=== PATIENT | female | born 1940 | race American Indian/Alaskan Native ===

== ENCOUNTER 2018-12-06 15:33 | Observation (INO) | payer MEDICARE ==
--- NOTE | 2018-12-06 17:49 | XRay Report ---
CHEST 1 VIEW INDICATION: WEAKNESS. COMPARISON: None. FINDINGS: Support devices: None. Heart: Normal. Lungs/Pleura: There are diffuse increased reticular markings throughout both lungs. These are of unce rtain chronicity. No consolidation, significant effusion, or pneumothorax. IMPRESSION: 1. Age-indeterminate diffuse increased reticular markings within both lungs. No consolidation or effu parish. Signer Name: Dagoberto Horn MD Signed: 12/06/2018 5:45 PM Workstation Name: [id number]
--- NOTE | 2018-12-06 17:51 | Emergency Department Report ---
ED General Adult HPI - General Chief complaint: Weakness Stated complaint: (R) ARM NUMB Time Seen by Provider: 12/06/18 16:55 Source: patient, EMS Mode of arrival: Stretcher Limitations: No Limitations - History of Present Illness Initial comments: Patient presents to the emergency department with her daughter for chief complaint of right-sided weakness and numbness. Patient states that she wasn't febrile on her right side became weak and numb. Patient has a history of a CVA in the past. Symptoms have resolved. Denies facial droop or slurred speech. -: Sudden Severity scale (0 -10): 0 Consistency: now resolved Improves with: none Worsens with: none Associated Symptoms: denies other symptoms Treatments Prior to Arrival: none - Related Data Home Medications Medication Instructions Recorded Confirmed Last Taken Lisinopril [Zestril] 20 mg PO QDAY 12/06/18 12/06/18 12/06/18 Memantine [Namenda] 10 mg PO QDAY 12/06/18 12/06/18 12/06/18 Allergies Allergy/AdvReac Type Severity Reaction Status Date / Time iodine Allergy Shortness Verified 12/06/18 18:47 of Breath ED Review of Systems ROS: Stated complaint: (R) ARM NUMB Other details as noted in HPI Comment: All other systems reviewed and negative Constitutional: denies: chills, fever Eyes: denies: eye pain, eye discharge, vision change ENT: denies: ear pain, throat pain Respiratory: denies: cough, shortness of breath, wheezing Cardiovascular: denies: chest pain, palpitations Endocrine: no symptoms reported Gastrointestinal: denies: abdominal pain, nausea, diarrhea Genitourinary: denies: urgency, dysuria, discharge Musculoskeletal: denies: back pain, joint swelling, arthralgia Skin: denies: rash, lesions Neurological: denies: headache, weakness, paresthesias Psychiatric: denies: anxiety, depression Hematological/Lymphatic: denies: easy bleeding, easy bruising ED Past Medical Hx - Past Medical History Previous Medical History?: Yes Hx Hypertension: Yes Hx Congestive Heart Failure: Yes Additional medical history: dementia - Surgical History Past Surgical History?: No - Social History Smoking Status: Former Smoker Substance Use Type: None - Medications Home Medications: Home Medications Medication Instructions Recorded Confirmed Last Taken Type Lisinopril [Zestril] 20 mg PO QDAY 12/06/18 12/06/18 12/06/18 History Memantine [Namenda] 10 mg PO QDAY 12/06/18 12/06/18 12/06/18 History ED Physical Exam - General Limitations: No Limitations General appearance: alert, in no apparent distress - Head Head exam: Present: atraumatic, normocephalic - Eye Eye exam: Present: normal appearance, PERRL, EOMI - ENT ENT exam: Present: mucous membranes moist - Neck Neck exam: Present: normal inspection - Respiratory Respiratory exam: Present: normal lung sounds bilaterally. Absent: respiratory distress - Cardiovascular Cardiovascular Exam: Present: regular rate, normal rhythm. Absent: systolic murmur, diastolic murmur, rubs, gallop - GI/Abdominal GI/Abdominal exam: Present: soft, normal bowel sounds - Extremities Exam Extremities exam: Present: normal inspection - Back Exam Back exam: Present: normal inspection - Neurological Exam Neurological exam: Present: alert, oriented X3, CN II-XII intact. Absent: motor sensory deficit - Psychiatric Psychiatric exam: Present: normal affect, normal mood - Skin Skin exam: Present: warm, dry, intact, normal color. Absent: rash ED Course Vital Signs 12/06/18 12/06/18 16:30 19:05 Temperature 98.7 F 98 F Pulse Rate 70 70 Respiratory 16 12 Rate Blood Pressure 137/55 Blood Pressure 136/100 [Left] O2 Sat by Pulse 100 100 Oximetry ED Medical Decision Making - Lab Data Result diagrams: 12/06/18 17:41 12/06/18 17:41 Lab Results 12/06/18 12/06/18 12/06/18 Range/Units 17:41 17:41 17:41 WBC 6.3 (4.5-11.0) K/mm3 RBC 3.98 (3.65-5.03) M/mm3 Hgb 10.6 (10.1-14.3) gm/dl Hct 32.0 (30.3-42.9) % MCV 81 (79-97) fl MCH 27 L (28-32) pg MCHC 33 (30-34) % RDW 14.7 (13.2-15.2) % Plt Count 244 (140-440) K/mm3 Lymph % (Auto) 33.7 (13.4-35.0) % Addison % (Auto) 11.9 H (0.0-7.3) % Eos % (Auto) 2.4 (0.0-4.3) % Baso % (Auto) 1.2 (0.0-1.8) % Lymph # 2.1 (1.2-5.4) K/mm3 Addison # 0.7 (0.0-0.8) K/mm3 Eos # 0.2 (0.0-0.4) K/mm3 Baso # 0.1 (0.0-0.1) K/mm3 Seg Neutrophils % 50.8 (40.0-70.0) % Seg Neutrophils # 3.2 (1.8-7.7) K/mm3 PT 12.3 (12.2-14.9) Sec. INR 0.94 (0.87-1.13) APTT 24.7 (24.2-36.6) Sec. Sodium 136 L (137-145) mmol/L Potassium 3.8 (3.6-5.0) mmol/L Chloride 99.1 (98-107) mmol/L Carbon Dioxide 26 (22-30) mmol/L Anion Gap 15 mmol/L BUN 21 H (7-17) mg/dL Creatinine 1.4 H (0.7-1.2) mg/dL Estimated GFR 44 ml/min BUN/Creatinine Ratio 15 % Glucose 307 H (65-100) mg/dL Calcium 9.4 (8.4-10.2) mg/dL Total Bilirubin 0.20 (0.1-1.2) mg/dL AST 9 (5-40) units/L ALT 7 (7-56) units/L Alkaline Phosphatase 101 (35-129) units/L Troponin T (0.00-0.029) ng/mL Total Protein 8.2 (6.3-8.2) g/dL Albumin 3.8 L (3.9-5) g/dL Albumin/Globulin Ratio 0.9 % Urine Color (Yellow) Urine Turbidity (Clear) Urine pH (5.0-7.0) Ur Specific Cranberry (1.003-1.030) Urine Protein (Negative) mg/dL Urine Glucose (UA) (Negative) mg/dL Urine Ketones (Negative) mg/dL Urine Blood (Negative) Urine Nitrite (Negative) Urine Bilirubin (Negative) Urine Urobilinogen (<2.0) mg/dL Ur Leukocyte Esterase (Negative) Urine WBC (Auto) (0.0-6.0) /HPF Urine RBC (Auto) (0.0-6.0) /HPF U Epithel Cells (Auto) (0-13.0) /HPF Urine Mucus /HPF 12/06/18 12/06/18 12/06/18 Range/Units 17:41 18:01 19:02 WBC (4.5-11.0) K/mm3 RBC (3.65-5.03) M/mm3 Hgb (10.1-14.3) gm/dl Hct (30.3-42.9) % MCV (79-97) fl MCH (28-32) pg MCHC (30-34) % RDW (13.2-15.2) % Plt Count (140-440) K/mm3 Lymph % (Auto) (13.4-35.0) % Addison % (Auto) (0.0-7.3) % Eos % (Auto) (0.0-4.3) % Baso % (Auto) (0.0-1.8) % Lymph # (1.2-5.4) K/mm3 Addison # (0.0-0.8) K/mm3 Eos # (0.0-0.4) K/mm3 Baso # (0.0-0.1) K/mm3 Seg Neutrophils % (40.0-70.0) % Seg Neutrophils # (1.8-7.7) K/mm3 PT (12.2-14.9) Sec. INR (0.87-1.13) APTT (24.2-36.6) Sec. Sodium (137-145) mmol/L Potassium (3.6-5.0) mmol/L Chloride (98-107) mmol/L Carbon Dioxide (22-30) mmol/L Anion Gap mmol/L BUN (7-17) mg/dL Creatinine (0.7-1.2) mg/dL Estimated GFR ml/min BUN/Creatinine Ratio % Glucose (65-100) mg/dL Calcium (8.4-10.2) mg/dL Total Bilirubin (0.1-1.2) mg/dL AST (5-40) units/L ALT (7-56) units/L Alkaline Phosphatase (35-129) units/L Troponin T < 0.010 < 0.010 (0.00-0.029) ng/mL Total Protein (6.3-8.2) g/dL Albumin (3.9-5) g/dL Albumin/Globulin Ratio % Urine Color Yellow (Yellow) Urine Turbidity Clear (Clear) Urine pH 6.0 (5.0-7.0) Ur Specific Cranberry 1.009 (1.003-1.030) Urine Protein <15 mg/dl (Negative) mg/dL Urine Glucose (UA) 150 (Negative) mg/dL Urine Ketones Neg (Negative) mg/dL Urine Blood Neg (Negative) Urine Nitrite Neg (Negative) Urine Bilirubin Neg (Negative) Urine Urobilinogen < 2.0 (<2.0) mg/dL Ur Leukocyte Esterase Tr (Negative) Urine WBC (Auto) 3.0 (0.0-6.0) /HPF Urine RBC (Auto) < 1.0 (0.0-6.0) /HPF U Epithel Cells (Auto) 1.0 (0-13.0) /HPF Urine Mucus Few /HPF - Radiology Data Radiology results: report reviewed - Medical Decision Making Discussed results with pt Critical care attestation.: If time is entered above; I have spent that time in minutes in the direct care of this critically ill patient, excluding procedure time. ED Disposition Clinical Impression: Weakness, Numbness Disposition: DC-[id number] OP ADMIT IP TO THIS HOSP Is pt being admited?: Yes Does the pt Need Aspirin: No Condition: Fair - Assessment Assessment Interval: Baseline - Level of Consciousness 1a. Level of Consciousness: alert/keenly responsive - LOC Questions 1b. LOC Questions: answers both correctly - LOC Command 1c. LOC Commands: performs tasks correctly - Best Gaze 2. Best Gaze: normal - Visual 3. Visual: no visual loss - Facial Palsy 4. Facial Palsy: normal symmetrical movement - Motor Arm 5a. Motor Arm Left: no drift 5b. Motor Arm Right: no drift - Motor Leg 6a. Motor Leg Left: no drift 6b. Motor Leg Right: no drift - Limb Ataxia 7. Limb Ataxia: absent - Sensory 8. Sensory: normal - Best Language 9. Best Language: no aphasia - Dysarthria 10. Dysarthria: normal - Extinction and Inattention 11. Extinction/Inattention: no abnormality - Scoring Total Score: 0 Stroke Severity: No Stroke Symptoms
[2018-12-06 17:54] LABS: Basophils # (Auto) 0.1 K/mm3 (0.0-0.1); Basophils % (Auto) 1.2 % (0.0-1.8); Eosinophils # (Auto) 0.2 K/mm3 (0.0-0.4); Eosinophils % (Auto) 2.4 % (0.0-4.3); Hemoglobin 10.6 gm/dl (10.1-14.3); Lymphocytes # (Auto) 2.1 K/mm3 (1.2-5.4); Lymphocytes % (Auto) 33.7 % (13.4-35.0); Mean Corpuscular HGB Conc 33 % (30-34); Mean Corpuscular Volume 81 fl (79-97); Monocytes # (Auto) 0.7 K/mm3 (0.0-0.8); Monocytes % (Auto) 11.9 % (0.0-7.3); Platelet Count 244 K/mm3 (140-440); Red Blood Count 3.98 M/mm3 (3.65-5.03); Red Cell Distribution Width 14.7 % (13.2-15.2)
[2018-12-06 18:09] LABS: INR 0.94 (0.87-1.13)
[2018-12-06 18:12] LABS: Partial Thromboplastin Time 24.7 Sec. (24.2-36.6)
[2018-12-06 18:21] LABS: Albumin 3.8 g/dL (3.9-5); Calcium 9.4 mg/dL (8.4-10.2)
[2018-12-06 18:26] LABS: Bilirubin,Urine NEG (Negative); Blood,Urine NEG (Negative); Color,Urine Yellow (Yellow); Mucus,Urine FEW /HPF; Protein,Urine <15 mg/dL mg/dL (Negative); RBC,Urine < 1.0 /HPF (0.0-6.0); Urobilinogen,Urine < 2.0 mg/dL (<2.0)
--- NOTE | 2018-12-06 20:23 | Cat Scan Report ---
Nonenhanced CT scan of the brain: INDICATION: WEAKNESS,NUMBNESS. TECHNIQUE: Routine CT head without contrast. Sagittal and coronal reformatted images were obtained. A ll CT scans at this location are performed using CT dose reduction for ALARA by means of automated ex posure control. COMPARISON: None. FINDINGS: BRAIN / INTRACRANIAL CONTENTS: No acute hemorrhage, mass effect, midline shift, hydrocephalus, or acu te, large territorial infarct. Mild volume loss is seen in the cerebellar vermis and cerebellar hemis pheres. Focal chronic lacunae are seen in the basal ganglia. CRANIOCERVICAL JUNCTION: No significant abnormality. ORBITS: No significant abnormality of visualized orbits. SINUSES / MASTOIDS: No significant abnormality of the visualized paranasal sinuses or mastoid air génesis ls. ADDITIONAL FINDINGS: dural based calcification or ossification is seen in the sphenoid bones bilatera lly. These are nonspecific. IMPRESSION: I do not see an acute parenchymal lesion in the brain. Signer Name: Teddy Villalpando MD Signed: 12/06/2018 8:19 PM Workstation Name: [id number]
[2018-12-06] MEDS ORDERED: SODIUM CHLORIDE FLUSH SYRINGE 10 ML IV PRN (20:45)
[2018-12-06] MEDS ORDERED: ZOFRAN IV PRN (20:45)
[2018-12-06] MEDS ORDERED: TYLENOL PO PRN (20:45)
[2018-12-06] MEDS ORDERED: DULCOLAX PR PRN (20:45)
--- NOTE | 2018-12-06 22:25 | Event Note ---
78-year-old woman with history of dementia and previous CVA who presented with transient right-sided weakness and numbness. Symptoms resolved before presentation to the ER. TIA; -obtain MR brain, MRA brain, carotid dopplers, echo -allow permissive htn -aspirin and high dose statin, check Lipid panel -neurology consult
--- NOTE | 2018-12-06 22:48 | History and Physical Report ---
History of Present Illness Date of examination: 12/06/18 Date of admission: 12/06/2018 Chief complaint: right sided weakness/ numbness History of present illness: 78 are all -Dominican female with history of CVA with left-sided residual weakness (2015), HTN, CHF, and dementia who presents to [facility] ED via EMS with complaints right sided weakness and numbness. Pt is from [place] and is temporarily living with her daughter in [facility]. Pt's daughter is present at bedside and has assisted with history. According to pt's daughter they were driving in the car, when her mother complained of numbness and weakness to right side. She pulled into a [employer] parking lot and called EMS. Upon arrival to our facility states that her symptoms have resolved. Denies: headache, n/v/, diaphoresis, visual disturbancea, or gait dysfunction Past History Past Medical History: heart failure, hypertension, renal failure (?? CKD), stroke (2016), other (dementia) Past Surgical History: No surgical history Social history: lives with family (daughter) Family history: no significant family history Medications and Allergies Allergies Allergy/AdvReac Type Severity Reaction Status Date / Time iodine Allergy Shortness Verified 12/06/18 18:47 of Breath Home Medications Medication Instructions Recorded Confirmed Last Taken Type Carvedilol [Coreg] 25 mg PO BID 12/06/18 12/06/18 12/05/18 History Clopidogrel 75 mg PO DAILY 12/06/18 12/06/18 12/05/18 History Ferrous Sulfate [Ferrous Sulfate 324 mg PO DAILY 12/06/18 12/06/18 12/05/18 History 324 MG] Furosemide [Lasix TAB] 80 mg PO BID 12/06/18 12/06/18 12/05/18 History Gabapentin [Neurontin] 400 mg PO Q8HR 12/06/18 12/06/18 12/05/18 History Linagliptin [Tradjenta] 5 mg PO QDAY 12/06/18 12/06/18 12/05/18 History Lisinopril [Zestril] 20 mg PO QDAY 12/06/18 12/06/18 12/06/18 History Memantine [Namenda] 10 mg PO QDAY 12/06/18 12/06/18 12/06/18 History Nitroglycerin [Nitrostat] 0.4 mg SL PRN 12/06/18 12/06/18 12/05/18 History Omeprazole 40 mg PO QAM 12/06/18 12/06/18 12/05/18 History Oxycodone HCl/Acetaminophen 1 each PO TID 12/06/18 12/06/18 12/05/18 History [Percocet 10/325 mg] Potassium Chloride [K-Dur] 20 meq PO QDAY 12/06/18 12/06/18 12/05/18 History Simvastatin 40 mg PO QHS 12/06/18 12/06/18 12/05/18 History Active Meds: Active Medications Acetaminophen (Tylenol) 650 mg PO Q4H PRN PRN Reason: Pain, Mild (1-3) Aspirin (Aspirin) 325 mg PO QDAY RENEE Atorvastatin Calcium (Lipitor) 40 mg PO QHS RENEE Bisacodyl (Dulcolax) 10 mg [place] QDAY PRN PRN Reason: Constipation Docusate Sodium (Colace) 100 mg PO BID RENEE Enoxaparin Sodium (Lovenox) 40 mg SUB-Q QDAY RENEE Memantine (Namenda) 10 mg PO QDAY RENEE Ondansetron HCl (Zofran) 4 mg IV Q6H PRN PRN Reason: Nausea And Vomiting Sodium Chloride (Sodium Chloride Flush Syringe 10 Ml) 10 ml IV PRN PRN PRN Reason: LINE FLUSH Review of Systems All systems: negative (reviewed and no additional remarkable complaints except as noted below) Neurological: weakness (right sided- new onset, residua left sided weakness), numbness (right sided- new onset, residua left sided weakness) Exam - Physical Exam Narrative exam: Physical exam General appearance: Present: No acute distress, alert and oriented 3, well- developed, well-nourished, -Dominican old adult female - EENT Eyes: Present: PERRL, EOM intact ENT: hearing intact, SVT- Neck Neck: Present: supple, normal ROM - Respiratory Respiratory effort: Non-labored Respiratory: CTA bilaterally - Cardiovascular Heart rate: 70 (bpm) Rhythm: SR Heart Sounds: Present: S1 & S2. Absent: rub, click - Extremities Extremities: no ischemia, pulses intact, abnormal (bilateral lower humidity t race edema) - Peripheral Assessment Peripheral Pulses: within normal limits - Abdominal General gastrointestinal: soft, non-tender, normal bowel sounds - Integumentary Integumentary: Present: warm, dry - Musculoskeletal Musculoskeletal: Able to move all extremities -Neurological Neurological: CN II-XII grossly intact - Psychiatric Psychiatric: Pleasant, cooperative - Constitutional Vitals: Temp Pulse Resp BP Pulse Ox 98 F 83 19 166/74 100 12/06/18 19:05 12/06/18 21:31 12/06/18 21:31 12/06/18 21:31 12/06/18 21:31 Results - Labs CBC & Chem 7: 12/06/18 17:41 12/06/18 17:41 Labs: Laboratory Last Values WBC 6.3 K/mm3 (4.5-11.0) 12/06/18 17:41 RBC 3.98 M/mm3 (3.65-5.03) 12/06/18 17:41 Hgb 10.6 gm/dl (10.1-14.3) 12/06/18 17:41 Hct 32.0 % (30.3-42.9) 12/06/18 17:41 MCV 81 fl (79-97) 12/06/18 17:41 MCH 27 pg (28-32) L 12/06/18 17:41 MCHC 33 % (30-34) 12/06/18 17:41 RDW 14.7 % (13.2-15.2) 12/06/18 17:41 Plt Count 244 K/mm3 (140-440) 12/06/18 17:41 Lymph % (Auto) 33.7 % (13.4-35.0) 12/06/18 17:41 Pine % (Auto) 11.9 % (0.0-7.3) H 12/06/18 17:41 Eos % (Auto) 2.4 % (0.0-4.3) 12/06/18 17:41 Baso % (Auto) 1.2 % (0.0-1.8) 12/06/18 17:41 Lymph # 2.1 K/mm3 (1.2-5.4) 12/06/18 17:41 Pine # 0.7 K/mm3 (0.0-0.8) 12/06/18 17:41 Eos # 0.2 K/mm3 (0.0-0.4) 12/06/18 17:41 Baso # 0.1 K/mm3 (0.0-0.1) 12/06/18 17:41 Seg Neutrophils % 50.8 % (40.0-70.0) 12/06/18 17:41 Seg Neutrophils # 3.2 K/mm3 (1.8-7.7) 12/06/18 17:41 PT 12.3 Sec. (12.2-14.9) 12/06/18 17:41 INR 0.94 (0.87-1.13) 12/06/18 17:41 APTT 24.7 Sec. (24.2-36.6) 12/06/18 17:41 Sodium 136 mmol/L (137-145) L 12/06/18 17:41 Potassium 3.8 mmol/L (3.6-5.0) 12/06/18 17:41 Chloride 99.1 mmol/L (98-107) 12/06/18 17:41 Carbon Dioxide 26 mmol/L (22-30) 12/06/18 17:41 15 mmol/L 12/06/18 17:41 BUN 21 mg/dL (7-17) H 12/06/18 17:41 1.4 mg/dL (0.7-1.2) H 12/06/18 17:41 Estimated GFR 44 ml/min 12/06/18 17:41 15 % 12/06/18 17:41 Glucose 307 mg/dL (65-100) H 12/06/18 17:41 Calcium 9.4 mg/dL (8.4-10.2) 12/06/18 17:41 0.20 mg/dL (0.1-1.2) 12/06/18 17:41 AST 9 units/L (5-40) 12/06/18 17:41 ALT 7 units/L (7-56) 12/06/18 17:41 101 units/L (35-129) 12/06/18 17:41 < 0.010 ng/mL (0.00-0.029) 12/06/18 19:02 8.2 g/dL (6.3-8.2) 12/06/18 17:41 3.8 g/dL (3.9-5) L 12/06/18 17:41 0.9 % 12/06/18 17:41 Yellow (Yellow) 12/06/18 18:01 Clear (Clear) 12/06/18 18:01 6.0 (5.0-7.0) 12/06/18 18:01 Ur Specific Rayne 1.009 (1.003-1.030) 12/06/18 18:01 <15 mg/dl mg/dL (Negative) 12/06/18 18:01 150 mg/dL (Negative) 12/06/18 18:01 Neg mg/dL (Negative) 12/06/18 18:01 Neg (Negative) 12/06/18 18:01 Neg (Negative) 12/06/18 18:01 Neg (Negative) 12/06/18 18:01 < 2.0 mg/dL (<2.0) 12/06/18 18:01 Ur Leukocyte Esterase Tr (Negative) 12/06/18 18:01 3.0 /HPF (0.0-6.0) 12/06/18 18:01 < 1.0 /HPF (0.0-6.0) 12/06/18 18:01 U Epithel Cells (Auto) 1.0 /HPF (0-13.0) 12/06/18 18:01 Few /HPF 12/06/18 18:01 - Imaging and Cardiology Chest x-ray: report reviewed (There are diffuse increased reticular markings throughout both lungs. These are of uncertain chronicity. No consolidation, significant effusion, or pneumothorax. ), image reviewed Imaging and Cardiology: CT Head: Findings: BRAIN / INTRACRANIAL CONTENTS: No acute hemorrhage, mass effect, midline shift, hydrocephalus, or acute, large territorial infarct. Mild volume loss is seen in the cerebellar vermis and cerebellar hemispheres. Focal chronic lacunae are seen in the basal ganglia. CRANIOCERVICAL JUNCTION: No significant abnormality. ORBITS: No significant abnormality of visualized orbits. SINUSES / MASTOIDS: No significant abnormality of the visualized paranasal sinuses or mastoid air cells. ADDITIONAL FINDINGS: dural based calcification or ossification is seen in the sphenoid bones bilaterally. These are nonspecific. Impression: I do not see an acute parenchymal lesion in the brain. Assessment and Plan Assessment and plan: 78 are all -Dominican female with history of CVA with left-sided residual weakness (2016), HTN, CHF, and dementia who presents to [facility] ED via EMS with complaints right sided weakness and numbness. 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
[2018-12-06] MEDS ORDERED: D50W (25GM) Syringe IV PRN (22:56)
[2018-12-06] MEDS ORDERED: NACL 0.9% 1000 ML 1,000 ML IV SCH (23:00)
[2018-12-07] MEDS ORDERED: NITROSTAT SL PRN (01:00)
[2018-12-07] MEDS: COLACE PO SCH ×2 (03:18→15:07)
[2018-12-07] MEDS ORDERED: APRESOLINE IV PRN (04:04)
[2018-12-07 04:24] LABS: Chol/HDL Ratio 3.59 %
[2018-12-07] MEDS: NEURONTIN PO SCH ×3 (04:42→15:07)
[2018-12-07] MEDS: HumuLIN R SUB-Q SCH ×3 (08:00→20:14)
--- NOTE | 2018-12-07 08:26 | Progress Note ---
Assessment and Plan Assessment and plan: Patient is a 78 yo woman with a history of dementia, CVA with left sided residual weakness, hypertension and CHF who presented with transient right-sided weakness and numbness. 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 -Initiate stroke protocol -Neuro checks protocol -MRI Brain, MRA negative -Bilaterl Carotid doppler negative -Neurology consulted, input noted -PT/OT Eval pending Type 2 DM -BG on admission 304 -no hx of Dm-->daughter Hiren at bedside says she takes Diabetes pill -HgbA1c==>11.8 -POC BG monitoring -SSI coverage HTN -Monitor BP -Allow permissive HTN for the 24hrs, then will resume home antihypertensive meds -IV hydralazine when necessary Chronic diastolic heart failure -pt daughter reports hx of CHF -Echo pending==>ddx EF 50%, -Will resume HF meds once med rec has been completed ESTUARDO superimposed CDK3 -vasomotor nephrology -Cr on admission 1.4 with GFR 44 -Gentle hydration with IVF -Nephrology consulted Dementia on Namenda Dysphagia to liquid (i witnessed) PPI bid outpatient referral to GI History Interval history: Patient was seen and examined. Follow-up on current diagnosis. No overnight events reported to me. Patient denies any chest pain, shortness breath, nausea/vomiting or severe headaches. Imaging, nursing note, chart, labs and old chart reviewed. Discussed with patient. Hospitalist Physical - Physical exam Narrative exam: Gen: WDWN, NAD, Awake, Alert, confused HEENT: NCAT, EOMI, PERRL, OP Clear Neck: supple, no adenopathy, no thyromegaly, no JVD CVS/Heart: RRR, normal S1S2, pulses present bilaterally Chest/Lungs: CTA B, Symmetrical chest expansion, good air entry bilaterally GI/Abdomen: soft, NTND, good bowel sounds, no guarding or rebound /Bladder: no suprapubic tenderness, no CVA or paraspinal tenderness Extermity/Skin: no c/c/e, no obvious rash MSK: FROM x 3 Neuro: CN 2-12 grossly intact, no new focal deficits, old left hemiparesis Psych: calm but confused - Constitutional Vitals: Temp Pulse Resp BP Pulse Ox 98.2 F 88 18 141/76 94 12/07/18 07:04 12/07/18 07:04 12/07/18 07:04 12/07/18 07:04 12/07/18 07:04 Results - Labs CBC & Chem 7: 12/06/18 17:41 12/06/18 17:41 Labs: Laboratory Last Values WBC 6.3 K/mm3 (4.5-11.0) 12/06/18 17:41 RBC 3.98 M/mm3 (3.65-5.03) 12/06/18 17:41 Hgb 10.6 gm/dl (10.1-14.3) 12/06/18 17:41 Hct 32.0 % (30.3-42.9) 12/06/18 17:41 MCV 81 fl (79-97) 12/06/18 17:41 MCH 27 pg (28-32) L 12/06/18 17:41 MCHC 33 % (30-34) 12/06/18 17:41 RDW 14.7 % (13.2-15.2) 12/06/18 17:41 Plt Count 244 K/mm3 (140-440) 12/06/18 17:41 Lymph % (Auto) 33.7 % (13.4-35.0) 12/06/18 17:41 [place] % (Auto) 11.9 % (0.0-7.3) H 12/06/18 17:41 Eos % (Auto) 2.4 % (0.0-4.3) 12/06/18 17:41 Baso % (Auto) 1.2 % (0.0-1.8) 12/06/18 17:41 Lymph # 2.1 K/mm3 (1.2-5.4) 12/06/18 17:41 [place] # 0.7 K/mm3 (0.0-0.8) 12/06/18 17:41 Eos # 0.2 K/mm3 (0.0-0.4) 12/06/18 17:41 Baso # 0.1 K/mm3 (0.0-0.1) 12/06/18 17:41 Seg Neutrophils % 50.8 % (40.0-70.0) 12/06/18 17:41 Seg Neutrophils # 3.2 K/mm3 (1.8-7.7) 12/06/18 17:41 PT 12.3 Sec. (12.2-14.9) 12/06/18 17:41 INR 0.94 (0.87-1.13) 12/06/18 17:41 APTT 24.7 Sec. (24.2-36.6) 12/06/18 17:41 Sodium 136 mmol/L (137-145) L 12/06/18 17:41 Potassium 3.8 mmol/L (3.6-5.0) 12/06/18 17:41 Chloride 99.1 mmol/L (98-107) 12/06/18 17:41 Carbon Dioxide 26 mmol/L (22-30) 12/06/18 17:41 15 mmol/L 12/06/18 17:41 BUN 21 mg/dL (7-17) H 12/06/18 17:41 1.4 mg/dL (0.7-1.2) H 12/06/18 17:41 Estimated GFR 44 ml/min 12/06/18 17:41 15 % 12/06/18 17:41 Glucose 307 mg/dL (65-100) H 12/06/18 17:41 11.8 % (4-6) H 12/06/18 17:41 Calcium 9.4 mg/dL (8.4-10.2) 12/06/18 17:41 0.20 mg/dL (0.1-1.2) 12/06/18 17:41 AST 9 units/L (5-40) 12/06/18 17:41 ALT 7 units/L (7-56) 12/06/18 17:41 101 units/L (35-129) 12/06/18 17:41 < 0.010 ng/mL (0.00-0.029) 12/06/18 19:02 8.2 g/dL (6.3-8.2) 12/06/18 17:41 3.8 g/dL (3.9-5) L 12/06/18 17:41 0.9 % 12/06/18 17:41 Triglycerides 197 mg/dL (2-149) H 12/07/18 03:54 Cholesterol 133 mg/dL (50-199) 12/07/18 03:54 76 mg/dL (50-130) 12/07/18 03:54 37 mg/dL (40-59) L 12/07/18 03:54 3.59 % 12/07/18 03:54 Yellow (Yellow) 12/06/18 18:01 Clear (Clear) 12/06/18 18:01 6.0 (5.0-7.0) 12/06/18 18:01 Ur Specific [place] 1.009 (1.003-1.030) 12/06/18 18:01 <15 mg/dl mg/dL (Negative) 12/06/18 18:01 150 mg/dL (Negative) 12/06/18 18:01 Neg mg/dL (Negative) 12/06/18 18:01 Neg (Negative) 12/06/18 18:01 Neg (Negative) 12/06/18 18:01 Neg (Negative) 12/06/18 18:01 < 2.0 mg/dL (<2.0) 12/06/18 18:01 Ur Leukocyte Esterase Tr (Negative) 12/06/18 18:01 3.0 /HPF (0.0-6.0) 12/06/18 18:01 < 1.0 /HPF (0.0-6.0) 12/06/18 18:01 U Epithel Cells (Auto) 1.0 /HPF (0-13.0) 12/06/18 18:01 Few /HPF 12/06/18 18:01 Active Medications - Current Medications Current Medications: Generic Name Dose Route Start Last Admin Trade Name Freq PRN Reason Stop Dose Admin Acetaminophen 650 mg 12/06/18 20:45 12/07/18 05:03 Tylenol PO 650 mg Q4H PRN Administration Pain, Mild (1-3) Aspirin 325 mg 12/07/18 10:00 Aspirin PO QDAY [facility] Atorvastatin Calcium 40 mg 12/06/18 22:00 12/07/18 03:18 Lipitor PO Not Given QHS [facility] Bisacodyl 10 mg 12/06/18 20:45 Dulcolax IN QDAY PRN Constipation Clopidogrel Bisulfate 75 mg 12/07/18 10:00 Plavix PO DAILY [facility] Dextrose 50 ml 12/06/18 22:56 D50w (25gm) Syringe IV PRN PRN Hypoglycemia Docusate Sodium 100 mg 12/06/18 22:00 12/07/18 03:18 Colace PO Not Given BID [facility] Ferrous Sulfate 325 mg 12/07/18 10:00 Feosol PO DAILY [facility] Gabapentin 400 mg 12/07/18 06:00 12/07/18 07:35 Neurontin PO Not Given Q8HR [facility] Heparin Sodium (Porcine) 5,000 unit 12/07/18 10:00 Heparin SUB-Q Q12HR [facility] Hydralazine HCl 10 mg 12/07/18 04:04 12/07/18 04:41 Apresoline IV 10 mg Q4H PRN Administration Blood Pressure Sodium Chloride 1,000 mls @ 42 mls/hr 12/06/18 23:00 Nacl 0.9% 1000 Ml IV 12/07/18 12:00 DIRECT [facility] Insulin Human Regular 0 units 12/07/18 07:30 Humulin R SUB-Q ACHS [facility] Protocol Linagliptin 5 mg 12/07/18 10:00 Tradjenta PO QDAY [facility] Memantine 10 mg 12/07/18 10:00 Namenda PO QDAY [facility] Nitroglycerin 0.4 mg 12/07/18 01:00 Nitrostat SL Q5MIN PRN Chest Pain Ondansetron HCl 4 mg 12/06/18 20:45 Zofran IV Q6H PRN Nausea And Vomiting Pantoprazole Sodium 40 mg 12/07/18 10:00 Protonix PO QAM [facility] Sodium Chloride 10 ml 12/06/18 20:45 Sodium Chloride Flush Syringe 10 Ml IV PRN PRN LINE FLUSH
[2018-12-07] MEDS ORDERED: ZESTRIL PO SCH (10:00)
[2018-12-07] MEDS ORDERED: PLAVIX PO SCH (10:00)
[2018-12-07] MEDS ORDERED: HEPARIN SUB-Q SCH (10:00)
[2018-12-07] MEDS ORDERED: TRADJENTA PO SCH (10:00)
[2018-12-07] MEDS ORDERED: PROTONIX PO SCH (10:00)
[2018-12-07] MEDS ORDERED: LOVENOX SUB-Q SCH (10:00)
[2018-12-07] MEDS ORDERED: ASPIRIN PO SCH (10:00)
[2018-12-07] MEDS ORDERED: FEOSOL PO SCH (10:00)
[2018-12-07] MEDS ORDERED: NAMENDA PO SCH (10:00)
--- NOTE | 2018-12-07 10:16 | Vascular Lab Report ---
DUPLEX DOPPLER ULTRASOUND CAROTID, BILATERAL INDICATION: stroke FINDINGS: Right Carotid: No significant atherosclerotic plaque. Right CCA velocity: 88 cm/sec. Right ICA peak systolic velocity: 120 cm/sec. Systolic velocity ratio: 1.38. Spectral broadening: Mild Right Vertebral Artery: Antegrade flow. Left Carotid: No significant atherosclerotic plaque. Left CCA velocity: 83 cm/sec. Left ICA peak systolic velocity: 97 cm/sec. Systolic velocity ratio: 1.16 Spectral broadening: Mild Left Vertebral Artery: Antegrade flow IMPRESSION: 1. Sonographic NASCET Index Right Internal Carotid Artery and Left internal carotid artery:16-49% stenosis pansystolic spectral broadening with a PSV <125 cm/s 2. Less than 50% stenosis external carotids arteries bilaterally 3. Less than 50% stenosis common carotid arteries bilaterally 4. Antegrade flow both vertebral arteries Sonographic NASCET Index This study proposed the incorporation of distal ICA flow velocity information on the conventional car otid Doppler study improving the diagnostic accuracy of PSV 1. <15% stenosis deceleration spectral broadening with a peak systolic velocity (PSV) <125 cm/s 16-49% stenosis pansystolic spectral broadening with a PSV <125 cm/s 50-69% stenosis pansystolic spectral broadening with a PSV of >125 cm/s and end diastolic velocity (EDV) <110 cm/s or ICA/CCA PSV ratio >2 but <4 70-79% stenosis pansystolic spectral broadening with PSV >270 cm/s or EDV >110 cm/s or ICA/CCA PSV ratio >4 80-99% stenosis: EDV >140 cm/s complete occlusion: no flow; terminal thump Signer Name: Rehan Paige MD Signed: 12/07/2018 10:12 AM Workstation Name: [id number]
--- NOTE | 2018-12-07 12:25 | Magnetic Resonance Report ---
MRI BRAIN 12/07/2018 INDICATION / CLINICAL INFORMATION: TIA. Dizziness. Right-sided weakness.. TECHNIQUE: Multiplanar, multisequence MR images of the brain were obtained. COMPARISON: CT brain 12/06/2018 FINDINGS: BRAIN / INTRACRANIAL CONTENTS: Unenhanced MR images of the brain demonstrate no evidence of acute int racranial abnormality. Ventricles and sulci are normal in size and shape for a patient of this age. Mild chronic white matter T2 weighted hyperintensities are present in the periventricular white matte r of the cerebral hemispheres, consistent with chronic small vessel ischemic change. There is no evidence of acute ischemic injury, hemorrhage, or mass. There are no abnormal extra-axial fluid collections. EXTRACRANIAL: Unremarkable CRANIOCERVICAL JUNCTION: No significant abnormality. VASCULAR FLOW-VOIDS: No significant abnormality. IMPRESSION: Signer Name: Emil Jimenez MD Signed: 12/07/2018 12:21 PM Workstation Name: [id number]
--- NOTE | 2018-12-07 12:27 | Magnetic Resonance Report ---
MRA HEAD 12/07/2018 INDICATION / CLINICAL INFORMATION: Dizziness. Right-sided weakness.. TECHNIQUE: Routine MRA of the head is performed. 3-D/MIP reformats postprocessed. Some patient motion artifact i s present. COMPARISON: None available. FINDINGS: MRA HEAD: Intracranial internal carotid arteries: No significant abnormality. Anterior cerebral arteries: No significant abnormality. Middle cerebral arteries: No significant abnormality. Intracranial vertebral arteries: No significant abnormality. Basilar artery: No significant abnormality. Posterior cerebral arteries: No significant abnormality. . IMPRESSION: No significant abnormality. Signer Name: Emil Jimenez MD Signed: 12/07/2018 12:22 PM Workstation Name: [id number]
--- NOTE | 2018-12-07 14:35 | Consultation ---
Past History Past Medical History: heart failure, hypertension, renal failure (?? CKD), stroke (2016), other (dementia) Past Surgical History: No surgical history Social history: lives with family (daughter) Family history: no significant family history Medications and Allergies Allergies Allergy/AdvReac Type Severity Reaction Status Date / Time iodine Allergy Shortness Verified 12/06/18 18:47 of Breath Home Medications Medication Instructions Recorded Confirmed Last Taken Type Carvedilol [Coreg] 25 mg PO BID 12/06/18 12/06/18 12/05/18 History Clopidogrel 75 mg PO DAILY 12/06/18 12/06/18 12/05/18 History Ferrous Sulfate [Ferrous Sulfate 324 mg PO DAILY 12/06/18 12/06/18 12/05/18 History 324 MG] Furosemide [Lasix TAB] 80 mg PO BID 12/06/18 12/06/18 12/05/18 History Gabapentin [Neurontin] 400 mg PO Q8HR 12/06/18 12/06/18 12/05/18 History Linagliptin [Tradjenta] 5 mg PO QDAY 12/06/18 12/06/18 12/05/18 History Lisinopril [Zestril] 20 mg PO QDAY 12/06/18 12/06/18 12/06/18 History Memantine [Namenda] 10 mg PO QDAY 12/06/18 12/06/18 12/05/18 History Nitroglycerin [Nitrostat] 0.4 mg SL PRN 12/06/18 12/06/18 12/05/18 History Omeprazole 40 mg PO QAM 12/06/18 12/06/18 12/05/18 History Oxycodone HCl/Acetaminophen 1 each PO TID 12/06/18 12/06/18 12/05/18 History [Percocet 10/325 mg] Potassium Chloride [K-Dur] 20 meq PO QDAY 12/06/18 12/06/18 12/05/18 History Simvastatin 40 mg PO QHS 12/06/18 12/06/18 12/05/18 History Active Meds: Active Medications Acetaminophen (Tylenol) 650 mg PO Q4H PRN PRN Reason: Pain, Mild (1-3) Last Admin: 12/07/18 05:03 Dose: 650 mg Documented by: Aspirin (Aspirin) 325 mg PO QDAY [facility] Atorvastatin Calcium (Lipitor) 40 mg PO QHS [facility] Last Admin: 12/07/18 03:18 Dose: Not Given Documented by: Bisacodyl (Dulcolax) 10 mg CA QDAY PRN PRN Reason: Constipation Clopidogrel Bisulfate (Plavix) 75 mg PO DAILY [facility] Dextrose (D50w (25gm) Syringe) 50 ml IV PRN PRN PRN Reason: Hypoglycemia Docusate Sodium (Colace) 100 mg PO BID [facility] Last Admin: 12/07/18 03:18 Dose: Not Given Documented by: Ferrous Sulfate (Feosol) 325 mg PO DAILY [facility] Gabapentin (Neurontin) 400 mg PO Q8HR [facility] Last Admin: 12/07/18 07:35 Dose: Not Given Documented by: Heparin Sodium (Porcine) (Heparin) 5,000 unit SUB-Q Q12HR [facility] Hydralazine HCl (Apresoline) 10 mg IV Q4H PRN PRN Reason: Blood Pressure Last Admin: 12/07/18 04:41 Dose: 10 mg Documented by: Insulin Human Regular (Humulin R) 0 units SUB-Q ACHS [facility]; Protocol Linagliptin (Tradjenta) 5 mg PO QDAY [facility] Memantine (Namenda) 10 mg PO QDAY [facility] Nitroglycerin (Nitrostat) 0.4 mg SL Q5MIN PRN PRN Reason: Chest Pain Ondansetron HCl (Zofran) 4 mg IV Q6H PRN PRN Reason: Nausea And Vomiting Pantoprazole Sodium (Protonix) 40 mg PO QAM [facility] Sodium Chloride (Sodium Chloride Flush Syringe 10 Ml) 10 ml IV PRN PRN PRN Reason: LINE FLUSH Physical Examination - Vital Signs Vital Signs: Vital Signs Temp Pulse Resp BP Pulse Ox 98.7 F 70 16 137/55 100 12/06/18 16:30 12/06/18 16:30 12/06/18 16:30 12/06/18 16:30 12/06/18 16:30 Results - Laboratory Findings CBC and BMP: 12/06/18 17:41 12/06/18 17:41 Abnormal Lab Findings: Abnormal Labs 12/06/18 12/06/18 12/06/18 17:41 17:41 17:41 MCH 27 L [place] % (Auto) 11.9 H Sodium 136 L BUN 21 H Creatinine 1.4 H Glucose 307 H POC Glucose Hemoglobin A1c 11.8 H Albumin 3.8 L Triglycerides HDL Cholesterol 12/07/18 12/07/18 03:54 11:41 MCH [place] % (Auto) Sodium BUN Creatinine Glucose POC Glucose 267 H Hemoglobin A1c Albumin Triglycerides 197 H HDL Cholesterol 37 L Assessment and Plan Neurology consult report MS. HINSON IS A 78 YR OLD FEMALE WITH HIST OF HTN,DIABETES,DEMENTIA AND OLD STROKE WITH RESIDUAL LEFT HEMIPARESIS WHO WAS BROUGHT TO THE HOSPITAL ON 12/06/2018 BECAUSE OF AN EPISODE OF TRANSIENT WEAKNESS ON THE RT SIDE. BY THE PATIENT ARRIVED TO THE ER HER SYMPTOMS RESOLVED. SHE WAS NOT GIVEN TPA BY THE TELE NEUROLOGIST. WORK UP AFTER ADMISSION SHOWED INCREASED TRIGLYCERIDE,INCREASED LDL AND DECREASED HDL. MRI OF THE BRAIN DID NOT SHOW ANY NEW INFARCT.MRA DID NOT SHOW ANY INTRACRANIAL VESSEL OCCLUSION OR SIGNIFICANT NARROWING. CAROTID DUPLEX WAS ALSO NORMAL.PATIENT WAS NOT ON ASPIRIN FROM PREVIOUS STROKE. SHE WAS ON CLOPIDOGREL 75 MG QD.PATIENT ALSO HAS ADIAGNOSIS OF DEMENTIA AND IS ON ARICEPT. PHYSICAL EXAMINATION. ALERT AND APPROPRIATE. HAS INSIGHT INTO HER PROBLEMS AND ANSWERS QUESTIONS APPROPRIATELY. SHE WAS AWARE OF HER SOCIAL AND FAMILY DYNAMICS.KNOWS WHERE SHE WAS AND WHERE SHE IS FROM. HEART- NORMAL RATE AND RYTHM CAROTIDS- BOTH PALPABLE,NO BRUIT. CRANIAL NERVES-NO FACIAL ASYMMETRY, EXTRA OCULAR MOVEMENTS ARE INTACT. OTHER CRANIAL NERVES ARE WITH IN NORMAL LIMIT. MOTOR- MILD WEAKNESS OF LEFT UPPER AND LOWER EXTREMITY. STRENGTH ON THR RT UPPER AND LOWER EXTREMITIES ARE WITH IN NORMAL LIMIT. REFLEXES- REFLEXES ARE INCREASED ON THE LEFT UPPER AND LOWER EXTREMITIES WITH UP GOING TOE ON THE RIGHT AND NORMAL RT UPPER AND LOWER EXTREMITIES.SENSORY. SENSORY EXAMINATION WAS GROSSLY WITHIN NORMAL LIMIT. GAIT- PATIENT AMBULATES WITH A WALKER DUE TO WEAKNESS FROM PREVIOUS STROKE. IMPRESSION. TIA INVOLVING THE RT UPER AND LOWER EXTREMITY IN A BACK GROUND OF PREVIOUS STROKE. oNLY PLAVIX IS NOT PROTECTIVE ENOUGH. RECOMMEND. ADD ASPIRIN 81MG IN ADDITION TO PLAVIX, OR AGGRENOX ONE TAB PO BID IN PLACE OF PLAVIX AND ASPIRIN IF PLAVIX IS NOT INDICATED FOR CARDIAC STAND POINT. SHE ALSO HAS CORONARY ARTERY DISEASE. SHE SHOULD TAKE OVER THE COUNTER FLAX SEED OIL AT LEAST TWO CAPSULE A DAY TO INCREASE HER HDL AND SHOULD TAKE STATIN REGULARLY AND AVOID FRIED FOOD AND SATURATED FAT TO REDUCE TRYGLYCERIDE. SHOULD PAY MORE ATTENTION TO CONTROL DIABETES HER BLOOD SUGAR WAS 308.ON ADMISSION. DIABETES IS ALSO AN INDEPENDENT RISK FACTOR STROKE.
--- NOTE | 2018-12-07 15:58 | Discharge Summary ---
Providers - Providers Date of Admission: 12/06/18 20:45 Date of discharge: 12/07/18 Attending physician: TINA SANCHEZ 12/06/18 Consult to Physician [CONS] Routine Comment: Consulting Provider: ANGEL STEWART Physician Instructions: Reason For Exam: ? tia, hx cva with left sided residual weakness 12/06/18 20:45 Occupational Therapy Evaluate and Treat [CONS] Routine Comment: Reason For Exam: Neuro deficits Physical Therapy Evaluation and Treat [CONS] Routine Comment: Reason For Exam: Neuro deficits 12/06/18 22:53 Consult to Physician [CONS] Routine Comment: Consulting Provider: TATI HERNANDEZ Physician Instructions: Reason For Exam: ESTUARDO ??questionable history of CKD Primary care physician: LUIS ALFREDO DUNCAN Hospitalization Condition: Stable Hospital course: Patient is a 78 yo woman with a history of dementia, CVA with left sided residual weakness, hypertension and CHF who presented with transient right-sided weakness and numbness. 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 -Initiate stroke protocol -Neuro checks protocol -MRI Brain, MRA negative -Bilaterl Carotid doppler negative -Neurology consulted, input noted -PT/OT Eval pending Type 2 DM -BG on admission 304 -no hx of Dm-->daughter Hiren at bedside says she takes Diabetes pill -HgbA1c==>11.8 -POC BG monitoring -SSI coverage HTN -Monitor BP -Allow permissive HTN for the 24hrs, then will resume home antihypertensive meds -IV hydralazine when necessary Chronic diastolic heart failure -pt daughter reports hx of CHF -Echo pending==>ddx EF 50%, -Will resume HF meds once med rec has been completed ESTUARDO superimposed CDK3 -vasomotor nephrology -Cr on admission 1.4 with GFR 44 -daughter Hiren says kidney level (probably Cr but not sure) was 2.0 -Gentle hydration with IVF -Nephrology consulted -Outpatient Nephrology Dementia on Namenda Dysphagia to liquid (i witnessed) PPI bid outpatient referral to GI Disposition: DC-01 TO HOME OR SELFCARE Time spent for discharge: 35 minutes Core Measure Documentation - Palliative Care Palliative Care/ Comfort Measures: Not Applicable - Core Measures Any of the following diagnoses?: none - VTE Discharge Requirements Deep Vein Thrombosis/Pulmonary Embolism Present on Admission: No Has pt received <5 days of overlap therapy or INR<2.0: No Anticoagulant overlap therapy prescribed at discharge: No Contraindication No Overlap Therapy order at DC: Not Indicated Exam - Physical Exam Narrative exam: Gen: WDWN, NAD, Awake, Alert, confused HEENT: NCAT, EOMI, PERRL, OP Clear Neck: supple, no adenopathy, no thyromegaly, no JVD CVS/Heart: RRR, normal S1S2, pulses present bilaterally Chest/Lungs: CTA B, Symmetrical chest expansion, good air entry bilaterally GI/Abdomen: soft, NTND, good bowel sounds, no guarding or rebound /Bladder: no suprapubic tenderness, no CVA or paraspinal tenderness Extermity/Skin: no c/c/e, no obvious rash MSK: FROM x 3 Neuro: CN 2-12 grossly intact, no new focal deficits, old left hemiparesis Psych: calm but confused - Constitutional Vitals: Temp Pulse Resp BP Pulse Ox 98.2 F 85 18 145/89 99 12/07/18 11:41 12/07/18 11:41 12/07/18 11:41 12/07/18 11:41 12/07/18 11:41 Plan Activity: other (no strenous activity until cleared by PCP) Diet: low salt, diabetic, thickened liquids Follow up with: LUIS ALFREDO DUNCAN MD [Primary Care Provider] - 7 Days JASON BARILLAS MD [Staff Physician] - 7 Days JAIR SON MD [Staff Physician] - 7 Days Prescriptions: Omeprazole 40 mg PO BID 37 Days #14 capsule.
[2018-12-07 17:42] VITALS: BP 163/83
--- NOTE | 2018-12-07 19:08 | Consultation ---
History of Present Illness - Reason for Consult Consult date: 12/07/18 acute renal failure Requesting physician: TINA SANCHEZ - History of Present Illness This is a 78 yo F with past medical history of dementia, CVA Hypertension, CHF, who presented with transient right-sided weakness and numbness. CT head without contrast showed no acute findings. symptoms meanwhile improved, pt was admitted for possible TIA. Labs showed elevated Cr at 1.4mg/dl for which renal consult is requested. Pt reports that she has mild CKD at baseline, denies fever, chills, n/v/d, dysuria, rash ,blurry vision. Denies recent NSAIDs use or IV contrast exposure Past History Past Medical History: heart failure, hypertension, renal failure (?? CKD), stroke (2016), other (dementia) Past Surgical History: No surgical history Social history: lives with family (daughter) Family history: no significant family history Medications and Allergies Allergies Allergy/AdvReac Type Severity Reaction Status Date / Time iodine Allergy Shortness Verified 12/06/18 18:47 of Breath Home Medications Medication Instructions Recorded Confirmed Last Taken Type Carvedilol [Coreg] 25 mg PO BID 12/06/18 12/06/18 12/05/18 History Clopidogrel 75 mg PO DAILY 12/06/18 12/06/18 12/05/18 History Ferrous Sulfate [Ferrous Sulfate 324 mg PO DAILY 12/06/18 12/06/18 12/05/18 History 324 MG] Furosemide [Lasix TAB] 80 mg PO BID 12/06/18 12/06/18 12/05/18 History Gabapentin [Neurontin] 400 mg PO Q8HR 12/06/18 12/06/18 12/05/18 History Linagliptin [Tradjenta] 5 mg PO QDAY 12/06/18 12/06/18 12/05/18 History Lisinopril [Zestril TAB] 20 mg PO QDAY 12/06/18 12/06/18 12/06/18 History Memantine [Namenda] 10 mg PO QDAY 12/06/18 12/06/18 12/05/18 History Nitroglycerin [Nitrostat] 0.4 mg SL PRN 12/06/18 12/06/18 12/05/18 History Oxycodone HCl/Acetaminophen 1 each PO TID 12/06/18 12/06/18 12/05/18 History [Percocet 10/325 mg] Potassium Chloride [K-Dur] 20 meq PO QDAY 12/06/18 12/06/18 12/05/18 History Simvastatin 40 mg PO QHS 12/06/18 12/06/18 12/05/18 History Omeprazole 40 mg PO BID 37 Days #14 capsule. 12/07/18 Unknown Rx Active Meds: Active Medications Acetaminophen (Tylenol) 650 mg PO Q4H PRN PRN Reason: Pain, Mild (1-3) Last Admin: 12/07/18 05:03 Dose: 650 mg Documented by: Aspirin (Aspirin) 325 mg PO QDAY [facility] Last Admin: 12/07/18 15:07 Dose: 325 mg Documented by: Atorvastatin Calcium (Lipitor) 40 mg PO QHS [facility] Last Admin: 12/07/18 03:18 Dose: Not Given Documented by: Bisacodyl (Dulcolax) 10 mg AK QDAY PRN PRN Reason: Constipation Clopidogrel Bisulfate (Plavix) 75 mg PO DAILY [facility] Last Admin: 12/07/18 15:07 Dose: 75 mg Documented by: Dextrose (D50w (25gm) Syringe) 50 ml IV PRN PRN PRN Reason: Hypoglycemia Docusate Sodium (Colace) 100 mg PO BID [facility] Last Admin: 12/07/18 15:07 Dose: 100 mg Documented by: Ferrous Sulfate (Feosol) 325 mg PO DAILY [facility] Last Admin: 12/07/18 15:07 Dose: 325 mg Documented by: Gabapentin (Neurontin) 400 mg PO Q8HR [facility] Last Admin: 12/07/18 15:07 Dose: 400 mg Documented by: Heparin Sodium (Porcine) (Heparin) 5,000 unit SUB-Q Q12HR [facility] Last Admin: 12/07/18 16:11 Dose: 5,000 unit Documented by: Hydralazine HCl (Apresoline) 10 mg IV Q4H PRN PRN Reason: Blood Pressure Last Admin: 12/07/18 04:41 Dose: 10 mg Documented by: Insulin Human Regular (Humulin R) 0 units SUB-Q [facility]; Protocol Last Admin: 12/07/18 15:50 Dose: 3 units Documented by: Linagliptin (Tradjenta) 5 mg PO QDAY [facility] Last Admin: 12/07/18 15:07 Dose: 5 mg Documented by: Memantine (Namenda) 10 mg PO QDAY [facility] Last Admin: 12/07/18 15:07 Dose: 10 mg Documented by: Nitroglycerin (Nitrostat) 0.4 mg SL Q5MIN PRN PRN Reason: Chest Pain Ondansetron HCl (Zofran) 4 mg IV Q6H PRN PRN Reason: Nausea And Vomiting Pantoprazole Sodium (Protonix) 40 mg PO QAM [facility] Last Admin: 12/07/18 15:07 Dose: 40 mg Documented by: Sodium Chloride (Sodium Chloride Flush Syringe 10 Ml) 10 ml IV PRN PRN PRN Reason: LINE FLUSH Exam - Vital Signs Vital signs: Vital Signs Temp Pulse Resp BP Pulse Ox 98.7 F 70 16 137/55 100 12/06/18 16:30 12/06/18 16:30 12/06/18 16:30 12/06/18 16:30 12/06/18 16:30 - General Appearance General appearance: well-developed, well-nourished, appears stated age EENT: ATNC, PERRL, mucous membranes moist Neck: Present: neck supple Respiratory: Clear to Ascultation Heart: regular, S1S2 Gastrointestinal: Present: normoactive bowel sounds Integumentary: no rash, other (no edema ) Neurologic: no focal deficit, alert and oriented x3, strength 5/5, CN 3-12 intact Psychiatric: mood/affect appropriate, cooperative Results - Lab Results 12/06/18 17:41 12/06/18 17:41 Most recent lab results Calcium 9.4 mg/dL (8.4-10.2) 12/06/18 17:41 Assessment and Plan - Patient Problems (1) Acute kidney injury Current Visit: Yes Status: Acute Plan to address problem: likely due to pre-renal azotemia, UA showed no evidence of hematuria/proteinuria to suggest acute glomerular injury. avoid nephrotoxins, NSAIDS, IV contast. CKD f/u as outpatient. (2) Weakness Current Visit: Yes Status: Acute Plan to address problem: likely TIA, follow neurology recommendations (3) Hypertensive chronic kidney disease with stage 1 through stage 4 chronic kidney disease, or unspecified chronic kidney disease Current Visit: Yes Status: Acute Plan to address problem: monitor BP on current meds
== END 2018-12-07 20:15 | disposition home or self-care (01) ==
LOC: ED 15:33 → 4A 20:45 → INTOOBSV 20:45
PROVIDERS: ADMIT Internal Medicine; ATTEND Internal Medicine
DX: G45.9 Transient cerebral ischemic attack, unspecified (principal); I13.0 Hypertensive heart and chronic kidney disease with heart failure and stage 1 through stage 4 chronic kidney disease, or unspecified chronic kidney disease; N18.3 Chronic kidney disease, stage 3 (moderate); I50.9 Heart failure, unspecified; N17.9 Acute kidney failure, unspecified; R79.89 Other specified abnormal findings of blood chemistry; Z86.73 Personal history of transient ischemic attack (TIA), and cerebral infarction without residual deficits
CPT/HCPCS: 36415; 70450; 70544; 70551; 71045; 80053; 80061; 81001; 82962; 83036; 84484; 85025; 85610; 85730; 93005; 93010; 93306; 93880; 94760; 96372; 96374; 97110; 97116; 97161; 99285; G0378; J0360; J1644

== ENCOUNTER 2020-07-27 11:51 | Emergency (ER) | payer MEDICARE ==
--- NOTE | 2020-07-27 12:11 | Event Note ---
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 She does not currently on dialysis but is currently being followed by nephrology. History obtained from daughter secondary to patient's dementia. General: Awake, appropriately interactive, no acute distress. Neck: Supple. Full range of motion intact. Cardiovascular: Normal peripheral perfusion. Bilateral pretibial pitting edema, right > left. Pulmonary: Supplemental O2 in place. No respiratory distress. Patient is speaking normally without use of accessory muscles. Abdomen: Soft, non-distended. Left CVA tenderness. Left flank/LLQ tenderness. Skin: No apparent rashes or lesions. Neurological: No facial asymmetry. Speech is clear. Follows commands. Patient is alert and oriented. Musculoskeletal: Moves all four extremities spontaneously with normal range of motion. Psych: Cooperative. Appropriate mood and affect. This initial assessment/diagnostic orders/clinical plan/treatment(s) is/are subject to change based on patients health status, clinical progression and re- assessment by fellow clinical providers in the ED. Further treatment and workup at subsequent clinical providers discretion. Patient/guardian urged not to elope from the ED as their condition may be serious if not clinically assessed and managed.
--- NOTE | 2020-07-27 13:15 | Cat Scan Report ---
CT ABDOMEN AND PELVIS WITHOUT CONTRAST HISTORY: MAIN. Left flank pain COMPARISON: None. TECHNIQUE: CT images of the abdomen and pelvis were obtained without administration of intravenous co ntrast. All CT scans at this location are performed using CT dose reduction for ALARA by means of au tomated exposure control. FINDINGS: Lungs/bones: Emphysematous changes seen in lung bases. There is a spiculated lesion with some cavita tion within the right lung measuring 2.2 x 1.6 cm. Bilateral lower lobe atelectasis is noted. Abdomen/pelvis: Liver is mildly enlarged. Within limits of a noncontrast exam the liver, spleen, lef t adrenal gland, pancreas and gallbladder appear normal. There is nodularity within the right adrenal gland. Hounsfield unit measures 37 which does not fit the strict criteria for adenoma. No evidence f or bowel obstruction. Atherosclerotic changes seen throughout the aorta. There is degenerative change throughout spine. Posterior disc osteophytes and neuroforaminal narrowing at L4-5 and L5-S1. Extensi ve coronary artery disease is seen. Multiple calcifications versus calcified lesion is seen within th e inferior pole right kidney measuring 1.1 cm. No obstructing ureteral stone is seen. Urinary bladder is not well distended. Left kidney appears normal. IMPRESSION: 1. Calcified lesion versus multiple cortical calcifications in the inferior pole the right kidney jay suring up to 1.1 cm. No obstructing stone is seen. Follow-up with ultrasound or postcontrast CT. 2. Spiculated lesion within the right upper lung measuring 2.2 x 1.6 cm. Findings concerning for dejuan ocarcinoma. Follow CT chest is recommended. 3. Atherosclerotic changes of aorta and coronary vessels. 4. Right adrenal nodule measuring 1.8 cm. This does not fit the strict criteria for adenoma. Follow-u p delayed images or MRI could be performed. 5. Small 2 mm nonobstructing left renal stone. No left hydronephrosis. Bladder is not well-distended. Signer Name: Selwyn Zaragoza MD Signed: 07/27/2020 1:10 PM Workstation Name: [id number]
[2020-07-27 13:33] LABS: Basophils # (Auto) 0.1 K/mm3 (0.0-0.1); Basophils % (Auto) 1.4 % (0.0-1.8); Eosinophils # (Auto) 0.3 K/mm3 (0.0-0.4); Eosinophils % (Auto) 3.5 % (0.0-4.3); Hematocrit 28.6 % (30.3-42.9); Hemoglobin 9.5 gm/dl (10.1-14.3); Lymphocytes # (Auto) 1.7 K/mm3 (1.2-5.4); Mean Corpuscular HGB Conc 33 % (30-34); Mean Corpuscular Volume 79 fl (79-97); Monocytes # (Auto) 0.7 K/mm3 (0.0-0.8); Monocytes % (Auto) 9.6 % (0.0-7.3); Platelet Count 307 K/mm3 (140-440); Red Blood Count 3.62 M/mm3 (3.65-5.03); Red Cell Distribution Width 16.4 % (13.2-15.2)
[2020-07-27 13:36] LABS: Bilirubin,Urine NEG (Negative); Blood,Urine NEG (Negative); Color,Urine Yellow (Yellow); Mucus,Urine FEW /HPF; Protein,Urine <15 mg/dL mg/dL (Negative); Urobilinogen,Urine < 2.0 mg/dL (<2.0)
[2020-07-27 13:37] LABS: RBC,Urine < 1.0 /HPF (0.0-6.0)
[2020-07-27 13:50] LABS: Albumin 3.6 g/dL (3.9-5); Calcium 9.7 mg/dL (8.4-10.2)
--- NOTE | 2020-07-27 15:54 | Vascular Lab Report ---
Right lower extremity Doppler venous ultrasound INDICATION: Pain and swelling FINDINGS: The right common femoral vein, superficial femoral vein and popliteal veins have normal com pressibility and phasic flow. IMPRESSION: No evidence for DVT in the right lower extremity. Signer Name: Selwyn Zaragoza MD Signed: 07/27/2020 3:49 PM Workstation Name: [id number]
--- NOTE | 2020-07-27 17:18 | Emergency Department Report ---
ED Back Pain/Injury HPI - General Chief Complaint: Abdominal Pain Stated Complaint: RT FOOT/ POSSIBLE KIDNEY SIDE PAIN Time Seen by Provider: 07/27/20 16:42 Source: patient, family Limitations: Other - History of Present Illness Initial Comments: Chief complaint: "I have been to 3 different hospitals for this. I even took her to the doctor." HPI: This is a 80-year-old female who presents with left flank pain right leg swelling for several weeks. Patient has a history of chronic back pain on Percocet 3 times a day due to arthritis. Patient also has a history of dementia, lung mass: CHF, hypertension. Patient has a history of "UTI"" blood clots". daughter is at the bedside. Daughter gave majority of the history. Patient had left flank pain for several weeks. No association with trauma. But she has pain worse with movement. She denies abdominal pain. She denies fever. She denies vomiting. She denies diarrhea. Next Daughter had noticed that patient has right leg swelling greater than the left. Mostly in the foot. Patient lives part-time in [place]. Her primary care physician resides there. In 2019 patient was admitted to this hospital for TIA. I reviewed discharge summary. I reviewed medication list. Complaint: back pain -: Gradual, week(s) (3 weeks) Similar Symptoms Previously: Yes Place: home Severity: severe Consistency: constant Improves With: other (rest) Worsens With: movement Context: other (Patient has chronic back pain due to arthritis, she takes Percocet 3 times a day) Associated Symptoms: other (Right foot swelling) - Related Data Home Medications Medication Instructions Recorded Confirmed Last Taken Clopidogrel 75 mg PO DAILY 12/06/18 12/06/18 12/05/18 Ferrous Sulfate [Ferrous Sulfate 324 mg PO DAILY 12/06/18 12/06/18 12/05/18 324 MG] Furosemide [Lasix TAB] 80 mg PO BID 12/06/18 12/06/18 12/05/18 Gabapentin 400 mg PO Q8HR 12/06/18 12/06/18 12/05/18 Linagliptin [Tradjenta] 5 mg PO QDAY 12/06/18 12/06/18 12/05/18 Memantine 10 mg PO QDAY 12/06/18 12/06/18 12/05/18 Nitroglycerin [Nitrostat] 0.4 mg SL PRN 12/06/18 12/06/18 12/05/18 Oxycodone HCl/Acetaminophen 1 each PO TID 12/06/18 12/06/18 12/05/18 [Percocet 10/325 mg] Potassium Chloride [K-Dur] 20 meq PO QDAY 12/06/18 12/06/18 12/05/18 Simvastatin 40 mg PO QHS 12/06/18 12/06/18 12/05/18 carvediloL [Coreg] 25 mg PO BID 12/06/18 12/06/18 12/05/18 lisinopriL [Zestril TAB] 20 mg PO QDAY 12/06/18 12/06/18 12/06/18 Previous Rx's Medication Instructions Recorded Last Taken Type Omeprazole 40 mg PO BID 37 Days #14 capsule. 12/07/18 Unknown Rx Allergies Allergy/AdvReac Type Severity Reaction Status Date / Time iodine Allergy Shortness Verified 07/27/20 12:04 of Breath ED Review of Systems ROS: Stated complaint: RT FOOT/ POSSIBLE KIDNEY SIDE PAIN Other details as noted in HPI Comment: All other systems reviewed and negative Constitutional: denies: fever, malaise Respiratory: denies: cough, shortness of breath Gastrointestinal: denies: abdominal pain, nausea, vomiting Neurological: denies: headache ED Past Medical Hx - Past Medical History Previous Medical History?: Yes Hx Hypertension: Yes Hx Congestive Heart Failure: Yes Hx Dementia: Yes Additional medical history: dementia/ UTIS/ BLOOD CLOTS - Surgical History Past Surgical History?: Yes Additional Surgical History: BACK/NECK - Social History Smoking Status: Never Smoker Substance Use Type: None - Medications Home Medications: Home Medications Medication Instructions Recorded Confirmed Last Taken Type Clopidogrel 75 mg PO DAILY 12/06/18 12/06/18 12/05/18 History Ferrous Sulfate [Ferrous Sulfate 324 mg PO DAILY 12/06/18 12/06/18 12/05/18 History 324 MG] Furosemide [Lasix TAB] 80 mg PO BID 12/06/18 12/06/18 12/05/18 History Gabapentin 400 mg PO Q8HR 12/06/18 12/06/18 12/05/18 History Linagliptin [Tradjenta] 5 mg PO QDAY 12/06/18 12/06/18 12/05/18 History Memantine 10 mg PO QDAY 12/06/18 12/06/18 12/05/18 History Nitroglycerin [Nitrostat] 0.4 mg SL PRN 12/06/18 12/06/18 12/05/18 History Oxycodone HCl/Acetaminophen 1 each PO TID 12/06/18 12/06/18 12/05/18 History [Percocet 10/325 mg] Potassium Chloride [K-Dur] 20 meq PO QDAY 12/06/18 12/06/18 12/05/18 History Simvastatin 40 mg PO QHS 12/06/18 12/06/18 12/05/18 History carvediloL [Coreg] 25 mg PO BID 12/06/18 12/06/18 12/05/18 History lisinopriL [Zestril TAB] 20 mg PO QDAY 12/06/18 12/06/18 12/06/18 History Omeprazole 40 mg PO BID 37 Days #14 capsule. 12/07/18 Unknown Rx ED Physical Exam - General Limitations: Other General appearance: alert, in no apparent distress, other (Pleasant smiling appears comfortable) - Head Head exam: Present: atraumatic, normocephalic - Eye Eye exam: Present: normal appearance - ENT ENT exam: Present: mucous membranes moist - Neck Neck exam: Present: normal inspection, full ROM - Respiratory Respiratory exam: Present: normal lung sounds bilaterally. Absent: respiratory distress, wheezes, rales, rhonchi - Cardiovascular Cardiovascular Exam: Present: regular rate, normal rhythm, normal heart sounds. Absent: systolic murmur, diastolic murmur, rubs, gallop - GI/Abdominal GI/Abdominal exam: Present: soft, normal bowel sounds. Absent: distended, tenderness, guarding, rebound - Extremities Exam Extremities exam: Present: pedal edema (Bilateral pedal edema right slightly larger than left) - Back Exam Back exam: Present: normal inspection - Neurological Exam Neurological exam: Present: alert, oriented X3 - Psychiatric Psychiatric exam: Present: normal affect, normal mood - Skin Skin exam: Present: warm, dry, intact, normal color. Absent: rash ED Course Vital Signs 07/27/20 07/27/20 12:07 12:12 Temperature 98.6 F Pulse Rate 86 Respiratory 20 22 Rate Blood Pressure 160/120 ED Medical Decision Making - Lab Data Result diagrams: 07/27/20 13:08 07/27/20 13:08 Laboratory Results - last 24 hr 07/27/20 07/27/20 07/27/20 13:08 13:08 Unknown WBC 7.8 RBC 3.62 L Hgb 9.5 L Hct 28.6 L MCV 79 MCH 26 L MCHC 33 RDW 16.4 H Plt Count 307 Lymph % (Auto) 22.0 [place] % (Auto) 9.6 H Eos % (Auto) 3.5 Baso % (Auto) 1.4 Lymph # (Auto) 1.7 [place] # (Auto) 0.7 Eos # (Auto) 0.3 Baso # (Auto) 0.1 Seg Neutrophils % 63.5 Seg Neutrophils # 5.0 Sodium 135 L Potassium 4.4 Chloride 100.4 Carbon Dioxide 26 Anion Gap 13 BUN 25 H Creatinine 1.6 H Estimated GFR 37 BUN/Creatinine Ratio 16 Glucose 154 H Calcium 9.7 Magnesium 1.90 Total Bilirubin 0.20 AST 11 ALT 7 Alkaline Phosphatase 68 Total Protein 7.6 Albumin 3.6 L Albumin/Globulin Ratio 0.9 Lipase 46 Urine Color Yellow Urine Turbidity Clear Urine pH 6.0 Ur Specific Rainbow 1.008 Urine Protein <15 mg/dl Urine Glucose (UA) Neg Urine Ketones Neg Urine Blood Neg Urine Nitrite Neg Urine Bilirubin Neg Urine Urobilinogen < 2.0 Ur Leukocyte Esterase Neg Urine WBC (Auto) 1.0 Urine RBC (Auto) < 1.0 U Epithel Cells (Auto) 1.0 Urine Mucus Few - Radiology Data Radiology results: report reviewed Patient Name: DIANA HINSON Gender: Female Date of : 1940 Referring Provider: TASHIA HALL Organization: [facility] Accession Number: [id number] Requested Date: July 27, 2020 12:08 Report Status: Final Requested Procedure: 1 Procedure Description: VL venous duplex LE RT Modality: VL Findings Reporting MD: Selwyn Zaragoza Dictation Time: July 27, 2020 14:49 R D Engineer: Not available Caseworker Protective Services Date: Right lower extremity Doppler venous ultrasound INDICATION: Pain and swelling FINDINGS: The right common femoral vein, superficial femoral vein and popliteal veins have normal compressibility and phasic flow. IMPRESSION: No evidence for DVT in the right lower extremity. Signer Name: Selwyn Zaragoza MD Signed: 07/27/2020 2:49 PM Workstation Name: [id number] Patient Name: DIANA HINSON Gender: Female Date of : 1940 Referring Provider: TASHIA HALL Organization: [facility] Accession Number: [id number] Requested Date: July 27, 2020 12:06 Report Status: Final Requested Procedure: 1 Procedure Description: CT abdomen pelvis wo con Modality: CT Findings Reporting MD: Selwyn Zaragoza Dictation Time: July 27, 2020 12:10 R D Engineer: Not available Caseworker Protective Services Date: CT ABDOMEN AND PELVIS WITHOUT CONTRAST HISTORY: MAIN. Left flank pain COMPARISON: None. TECHNIQUE: CT images of the abdomen and pelvis were obtained without administration of intravenous contrast. All CT scans at this location are performed using CT dose reduction for ALARA by means of automated exposure control. FINDINGS: Lungs/bones: Emphysematous changes seen in lung bases. There is a spiculated lesion with some cavitation within the right lung measuring 2.2 x 1.6 cm. Bilateral lower lobe atelectasis is noted. Abdomen/pelvis: Liver is mildly enlarged. Within limits of a noncontrast exam the liver, spleen, left adrenal gland, pancreas and gallbladder appear normal. There is nodularity within the right adrenal gland. Hounsfield unit measures 37 which does not fit the strict criteria for adenoma. No evidence for bowel obstruction. Atherosclerotic changes seen throughout the aorta. There is degenerative change throughout spine. Posterior disc osteophytes and neuroforaminal narrowing at L4-5 and L5-S1. Extensive coronary artery disease is seen. Multiple calcifications versus calcified lesion is seen within the inferior pole right kidney measuring 1.1 cm. No obstructing ureteral stone is seen. Urinary bladder is not well distended. Left kidney appears normal. IMPRESSION: 1. Calcified lesion versus multiple cortical calcifications in the inferior pole the right kidney measuring up to 1.1 cm. No obstructing stone is seen. Follow-up with ultrasound or postcontrast CT. 2. Spiculated lesion within the right upper lung measuring 2.2 x 1.6 cm. Findings concerning for adenocarcinoma. Follow CT chest is recommended. 3. Atherosclerotic changes of aorta and coronary vessels. 4. Right adrenal nodule measuring 1.8 cm. This does not fit the strict criteria for adenoma. Follow-up delayed images or MRI could be performed. 5. Small 2 mm nonobstructing left renal stone. No left hydronephrosis. Bladder is not well-distended. Signer Name: Selwyn Zaragoza MD Signed: 07/27/2020 12:10 PM Workstation Name: [id number] - Medical Decision Making 1. Back pain: Suspect worsening arthritic pain, no evidence of intra-abdominal retroperitoneal process on CT scan. 2. Right lower extremity swelling: Suspect dependent edema venous insufficiency, duplex ultrasound ruled out DVT 3. Lung mass daughter states that lung mass seen on CT has been there "for years". Lung mass has been watched closely by her PCP. Patient is referred to her local primary care physician. She also was given referral to outpatient medicine physician on-call as well as medication specialist. CBC chemistry reveals baseline anemia baseline kidney function otherwise unremarkable. Critical care attestation.: If time is entered above; I have spent that time in minutes in the direct care of this critically ill patient, excluding procedure time. ED Disposition Clinical Impression: Back pain, Lung mass, Venous insufficiency, Lumbar degenerative disc disease Disposition: DC-01 TO HOME OR SELFCARE Is pt being admited?: No Does the pt Need Aspirin: No Condition: Stable Instructions: Abdominal Pain (ED), Degenerative Disk Disease, Chronic Venous Insufficiency Referrals: LUIS ALFREDO DUNCAN MD [Staff Physician] - 3-5 Days SARAH DUMONT II, MD [Staff Physician] - 3-5 Days
[2020-07-27 18:51] VITALS: BP 134/62
== END 2020-07-27 18:52 | disposition home or self-care (01) ==
LOC: ED 11:51
DX: M51.36 Other intervertebral disc degeneration, lumbar region (principal); I87.2 Venous insufficiency (chronic) (peripheral); R91.8 Other nonspecific abnormal finding of lung field; R10.9 Unspecified abdominal pain; I11.0 Hypertensive heart disease with heart failure; I50.9 Heart failure, unspecified; F03.90 Unspecified dementia, unspecified severity, without behavioral disturbance, psychotic disturbance, mood disturbance, and anxiety; Z98.890 Other specified postprocedural states; Z79.899 Other long term (current) drug therapy; Z88.8 Allergy status to other drugs, medicaments and biological substances
CPT/HCPCS: 36415; 74176; 80053; 81001; 83690; 83735; 85025

== ENCOUNTER 2020-08-02 00:34 | Emergency (ER) | payer MEDICARE ==
--- NOTE | 2020-08-02 02:50 | Event Note ---
ED Screening Note ED Screening Note: 80-year-old F [place] female with past medical history of COPD, renal insufficiency, CHF, CAD presents to the emergency department complaining progressively worsening bilateral lower extremity swelling associated with pain that radiates up her leg. She has a known history of CHF and renal insufficiency and feels like her condition is worsening. She tried to increase her Lasix PulsePak been unsuccessful This initial assessment/diagnostic orders/clinical plan/treatment(s) is/are subject to change based on patients health status, clinical progression and re- assessment by fellow clinical providers in the ED. Further treatment and workup at subsequent clinical providers discretion. Patient/guardian urged not to elope from the ED as their condition may be serious if not clinically assessed and managed. Initial orders include: Labs and x-ray
[2020-08-02 03:28] LABS: Basophils # (Auto) 0.1 K/mm3 (0.0-0.1); Basophils % (Auto) 1.1 % (0.0-1.8); Eosinophils # (Auto) 0.3 K/mm3 (0.0-0.4); Eosinophils % (Auto) 2.8 % (0.0-4.3); Hematocrit 30.7 % (30.3-42.9); Lymphocytes # (Auto) 1.9 K/mm3 (1.2-5.4); Lymphocytes % (Auto) 20.1 % (13.4-35.0); Mean Corpuscular HGB Conc 33 % (30-34); Mean Corpuscular Volume 79 fl (79-97); Monocytes # (Auto) 0.8 K/mm3 (0.0-0.8); Monocytes % (Auto) 8.1 % (0.0-7.3); Platelet Count 302 K/mm3 (140-440); Red Blood Count 3.89 M/mm3 (3.65-5.03); Red Cell Distribution Width 16.2 % (13.2-15.2)
--- NOTE | 2020-08-02 03:30 | XRay Report ---
CHEST PA AND LATERAL VIEWS INDICATION: sob and edema. COMPARISON: 12/06/2018 FINDINGS: Support devices: None. Heart: Stable. Lungs/Pleura: There are diffuse increased reticular markings in both lungs similar to the remote prio r. No consolidation or effusion. IMPRESSION: 1. Interstitial lung disease, likely chronic. Signer Name: Dagoberto Horn MD Signed: 08/02/2020 3:26 AM Workstation Name: [id number]
[2020-08-02 03:48] LABS: Albumin 4.2 g/dL (3.9-5); Calcium 9.3 mg/dL (8.4-10.2)
--- NOTE | 2020-08-02 07:47 | Emergency Department Report ---
ED General Adult HPI - General Chief complaint: Extremity Injury, Lower Stated complaint: LT SIDE SWELLING Time Seen by Provider: 08/02/20 07:44 Source: patient, family Mode of arrival: Wheelchair Limitations: Other - History of Present Illness Initial comments: This is a pleasant 80-year-old female who has no active complaints on my encounter other than a generalized feeling of malaise. She is able to answer directed questions and essentially provides a negative review of systems. She does not know why she was brought to the emergency department for evaluation. The triage note is indicative of bilateral leg swelling with the note that the patient "was seen and treated for the same 1 week ago". It does appear the patient was seen on 07/27/20 related to back pain. She was found to have a cavitary lung lesion on CT which the radiologist stated was consistent with adenocarcinoma. According to the emergency physician's note this lesion is chr onic and has been monitored by the patient's PCP for some time. The patient also has chronic back pain and apparently does take Percocet. According to the patient's daughter and per the nurse, the reason for presentation is bilateral leg swelling. The daughter has given p.o. Lasix. There is no observed shortness of breath. The patient is on home O2. She does not complain of shortness of breath at the time of my encounter. She does have a history of chronic interstitial lung disease. Review of her previous echocardiogram in 2019 was indicative of a EF of greater than 50% and really no other substantial abnormality at that time that I noted. The patient's diagnosis of CHF is somewhat suspect but certainly appears to be limited to diastolic dysfunction. She does have a history of diabetes. I did not find a history of VTE. Review of the 07/27/2020 emergency department does indicate that she was ruled out for DVT on the right. I am sure she is quite sedentary. She does state that she is able to walk with her walker. Summary of 07/27/2020 emergency department visit: CT ABDOMEN AND PELVIS WITHOUT CONTRAST HISTORY: MAIN. Left flank pain COMPARISON: None. TECHNIQUE: CT images of the abdomen and pelvis were obtained without administration of intravenous contrast. All CT scans at this location are performed using CT dose reduction for ALARA by means of automated exposure control. FINDINGS: Lungs/bones: Emphysematous changes seen in lung bases. There is a spiculated [place] with some cavitation within the right lung measuring 2.2 x 1.6 cm. Bilateral lower lobe atelectasis is noted. Abdomen/pelvis: Liver is mildly enlarged. Within limits of a noncontrast exam the liver, spleen, left adrenal gland, pancreas and gallbladder appear normal. There is nodularity within the right adrenal gland. Hounsfield unit measures 37 which does not fit the strict criteria for adenoma. No evidence for bowel obstruction. Atherosclerotic changes seen throughout the aorta. There is degenerative change throughout spine. Posterior disc osteophytes and neuroforaminal narrowing at L4-5 and L5-S1. Extensive coronary artery disease is seen. Multiple calcifications versus calcified lesion is seen within the inferior pole right kidney measuring 1.1 cm. No obstructing ureteral stone is seen. Urinary bladder is not well distended. Left kidney appears normal. IMPRESSION: 1. Calcified lesion versus multiple cortical calcifications in the inferior pole the right kidney measuring up to 1.1 cm. No obstructing stone is seen. Follow-up with ultrasound or postcontrast CT. 2. Spiculated lesion within the right upper lung measuring 2.2 x 1.6 cm. Findings concerning for adenocarcinoma. Follow CT chest is recommended. 3. Atherosclerotic changes of aorta and coronary vessels. 4. Right adrenal nodule measuring 1.8 cm. This does not fit the strict criteria for adenoma. Follow-up delayed images or MRI could be performed. 5. Small 2 mm nonobstructing left renal stone. No left hydronephrosis. Bladder is not well-distended. Signer Name: Selwyn Zaragoza MD Signed: 07/27/2020 12:10 PM Workstation Name: [id number] - Medical Decision Making 1. Back pain: Suspect worsening arthritic pain, no evidence of intra-abdominal retroperitoneal process on CT scan. 2. Right lower extremity swelling: Suspect dependent edema venous insufficiency, duplex ultrasound ruled out DVT 3. Lung mass daughter states that lung mass seen on CT has been there "for years". Lung mass has been watched closely by her PCP. Patient is referred to her local primary care physician. She also was given referral to outpatient medicine physician on-call as well as geophysical support specialist. CBC chemistry reveals baseline anemia baseline kidney function otherwise unremarkable. Critical care attestation.: If time is entered above; I have spent that time in minutes in the direct care of this critically ill patient, excluding procedure time. ED Disposition Clinical Impression: Back pain, Lung mass, Venous insufficiency, Lumbar degenerative disc disease Disposition: DC-01 TO HOME OR SELFCARE Is pt being admited?: No Does the pt Need Aspirin: No Condition: Stable Instructions: Abdominal Pain (ED), Degenerative Disk Disease, Chronic Venous Insufficiency Referrals: LUIS ALFREDO DUNCAN MD [Staff Physician] - 3-5 Days DUMONTSARAH II, MD [Staff Physician] - 3-5 Days 2019 discharge Summary: Hospitalization Condition: Stable Hospital course: Patient is a 78 yo woman with a history of dementia, CVA with left sided residual weakness, hypertension and CHF who presented with transient right-sided weakness and numbness. 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 -Initiate stroke protocol -Neuro checks protocol -MRI Brain, MRA negative -Bilaterl Carotid doppler negative -Neurology consulted, input noted -PT/OT Eval pending Type 2 DM -BG on admission 304 -no hx of Dm-->daughter Hiren at bedside says she takes Diabetes pill -HgbA1c==>11.8 -POC BG monitoring -SSI coverage HTN -Monitor BP -Allow permissive HTN for the 24hrs, then will resume home antihypertensive meds -IV hydralazine when necessary Chronic diastolic heart failure -pt daughter reports hx of CHF -Echo pending==>ddx EF 50%, -Will resume HF meds once med rec has been completed ESTUARDO superimposed CDK3 -vasomotor nephrology -Cr on admission 1.4 with GFR 44 -daughter Hiren says kidney level (probably Cr but not sure) was 2.0 -Gentle hydration with IVF -Nephrology consulted -Outpatient Nephrology Dementia on Namenda Dysphagia to liquid (i witnessed) PPI bid outpatient referral to GI Disposition: DC- TO HOME OR SELFCARE - Related Data Home Medications Medication Instructions Recorded Confirmed Last Taken Clopidogrel 75 mg PO DAILY 12/06/18 12/06/18 12/05/18 Ferrous Sulfate [Ferrous Sulfate 324 mg PO DAILY 12/06/18 12/06/18 12/05/18 324 MG] Furosemide [Lasix TAB] 80 mg PO BID 12/06/18 12/06/18 12/05/18 Gabapentin 400 mg PO Q8HR 12/06/18 12/06/18 12/05/18 Linagliptin [Tradjenta] 5 mg PO QDAY 12/06/18 12/06/18 12/05/18 Memantine 10 mg PO QDAY 12/06/18 12/06/18 12/05/18 Nitroglycerin [Nitrostat] 0.4 mg SL PRN 12/06/18 12/06/18 12/05/18 Oxycodone HCl/Acetaminophen 1 each PO TID 12/06/18 12/06/18 12/05/18 [Percocet 10/325 mg] Potassium Chloride [K-Dur] 20 meq PO QDAY 12/06/18 12/06/18 12/05/18 Simvastatin 40 mg PO QHS 12/06/18 12/06/18 12/05/18 carvediloL [Coreg] 25 mg PO BID 12/06/18 12/06/18 12/05/18 lisinopriL [Zestril TAB] 20 mg PO QDAY 12/06/18 12/06/18 12/06/18 Previous Rx's Medication Instructions Recorded Last Taken Type Omeprazole 40 mg PO BID 37 Days #14 capsule. 12/07/18 Unknown Rx Allergies Allergy/AdvReac Type Severity Reaction Status Date / Time iodine Allergy Shortness Verified 07/27/20 12:04 of Breath ED Review of Systems ROS: Stated complaint: LT SIDE SWELLING Other details as noted in HPI Constitutional: denies: chills, fever Eyes: denies: eye pain, vision change ENT: denies: ear pain, throat pain Respiratory: denies: cough, shortness of breath Cardiovascular: edema (increasing b/l leg swelling). denies: chest pain, palpitations Endocrine: no symptoms reported Gastrointestinal: denies: abdominal pain, nausea, diarrhea Genitourinary: denies: urgency, dysuria Musculoskeletal: denies: back pain, joint swelling, arthralgia Skin: denies: rash, lesions Neurological: denies: headache, weakness, paresthesias Psychiatric: denies: anxiety, depression Hematological/Lymphatic: denies: easy bleeding, easy bruising ED Past Medical Hx - Past Medical History Previous Medical History?: Yes Hx Hypertension: Yes Hx Congestive Heart Failure: Yes Hx Renal Disease: Yes Hx Dementia: Yes Additional medical history: dementia/ UTIS/ BLOOD CLOTS - Surgical History Past Surgical History?: Yes Additional Surgical History: BACK/NECK - Social History Smoking Status: Never Smoker Substance Use Type: None - Medications Home Medications: Home Medications Medication Instructions Recorded Confirmed Last Taken Type Clopidogrel 75 mg PO DAILY 12/06/18 12/06/18 12/05/18 History Ferrous Sulfate [Ferrous Sulfate 324 mg PO DAILY 12/06/18 12/06/18 12/05/18 History 324 MG] Furosemide [Lasix TAB] 80 mg PO BID 12/06/18 12/06/18 12/05/18 History Gabapentin 400 mg PO Q8HR 12/06/18 12/06/18 12/05/18 History Linagliptin [Tradjenta] 5 mg PO QDAY 12/06/18 12/06/18 12/05/18 History Memantine 10 mg PO QDAY 12/06/18 12/06/18 12/05/18 History Nitroglycerin [Nitrostat] 0.4 mg SL PRN 12/06/18 12/06/18 12/05/18 History Oxycodone HCl/Acetaminophen 1 each PO TID 12/06/18 12/06/18 12/05/18 History [Percocet 10/325 mg] Potassium Chloride [K-Dur] 20 meq PO QDAY 12/06/18 12/06/18 12/05/18 History Simvastatin 40 mg PO QHS 12/06/18 12/06/18 12/05/18 History carvediloL [Coreg] 25 mg PO BID 12/06/18 12/06/18 12/05/18 History lisinopriL [Zestril TAB] 20 mg PO QDAY 12/06/18 12/06/18 12/06/18 History Omeprazole 40 mg PO BID 37 Days #14 capsule. 12/07/18 Unknown Rx ED Physical Exam - General Limitations: Physical Limitation General appearance: alert, in no apparent distress - Head Head exam: Present: atraumatic, normocephalic - Eye Eye exam: Present: normal appearance. Absent: scleral icterus - ENT ENT exam: Present: mucous membranes moist - Neck Neck exam: Present: normal inspection. Absent: meningismus - Respiratory Respiratory exam: Present: normal lung sounds bilaterally. Absent: respiratory distress - Cardiovascular Cardiovascular Exam: Present: regular rate, normal rhythm. Absent: systolic murmur, diastolic murmur, rubs, gallop - GI/Abdominal GI/Abdominal exam: Present: soft, normal bowel sounds. Absent: distended, tenderness, guarding, rebound, rigid - Extremities Exam Extremities exam: Present: normal capillary refill, pedal edema, other (B/l 2+ pitting leg edema). Absent: full ROM, tenderness, calf tenderness - Back Exam Back exam: Present: normal inspection (limited) - Neurological Exam Neurological exam: Present: alert, CN II-XII intact, other (I did not find any lateralizing signs). Absent: oriented X3 (Oriented to place person context, did not know year), motor sensory deficit - Psychiatric Psychiatric exam: Present: normal affect, normal mood - Skin Skin exam: Present: warm, dry, intact, normal color. Absent: rash ED Course Vital Signs 08/02/20 08/02/20 02:45 08:32 Temperature 98.9 F 98.6 F Pulse Rate 94 H 90 Respiratory 20 12 Rate Blood Pressure 169/85 Blood Pressure 164/81 [Right] O2 Sat by Pulse 99 93 Oximetry - Reevaluation(s) Reevaluation #1: I spoke with the patient's daughter. She states that the patient does not have a primary care provider. I explained to her the possible explanations for the patient's leg edema and the need for primary care. The patient will be referred to on-call primary care as well as [facility]. I will order a home health evaluation as well. 08/02/20 11:04 ED Medical Decision Making - Lab Data Result diagrams: 08/02/20 03:08 08/02/20 03:08 Laboratory Results - last 24 hr 08/02/20 08/02/20 03:08 03:08 WBC 9.5 RBC 3.89 Hgb 10.0 L Hct 30.7 MCV 79 MCH 26 L MCHC 33 RDW 16.2 H Plt Count 302 Lymph % (Auto) 20.1 Mcminn % (Auto) 8.1 H Eos % (Auto) 2.8 Baso % (Auto) 1.1 Lymph # (Auto) 1.9 Mcminn # (Auto) 0.8 Eos # (Auto) 0.3 Baso # (Auto) 0.1 Seg Neutrophils % 67.9 Seg Neutrophils # 6.4 Sodium 141 Potassium 4.4 Chloride 103.4 Carbon Dioxide 26 Anion Gap 16 BUN 31 H Creatinine 1.4 H Estimated GFR 44 BUN/Creatinine Ratio 22 Glucose 139 H Calcium 9.3 Total Bilirubin 0.30 AST 12 ALT 9 Alkaline Phosphatase 110 NT-Pro-B Natriuret Pep 212.4 Total Protein 8.5 H Albumin 4.2 Albumin/Globulin Ratio 1.0 Laboratory Results - last 24 hr 08/02/20 08/02/20 08/02/20 03:08 03:08 08:42 WBC 9.5 RBC 3.89 Hgb 10.0 L Hct 30.7 MCV 79 MCH 26 L MCHC 33 RDW 16.2 H Plt Count 302 Lymph % (Auto) 20.1 Mcminn % (Auto) 8.1 H Eos % (Auto) 2.8 Baso % (Auto) 1.1 Lymph # (Auto) 1.9 Mcminn # (Auto) 0.8 Eos # (Auto) 0.3 Baso # (Auto) 0.1 Seg Neutrophils % 67.9 Seg Neutrophils # 6.4 Sodium 141 Potassium 4.4 Chloride 103.4 Carbon Dioxide 26 Anion Gap 16 BUN 31 H Creatinine 1.4 H Estimated GFR 44 BUN/Creatinine Ratio 22 Glucose 139 H Calcium 9.3 Total Bilirubin 0.30 AST 12 ALT 9 Alkaline Phosphatase 110 NT-Pro-B Natriuret Pep 212.4 Total Protein 8.5 H Albumin 4.2 Albumin/Globulin Ratio 1.0 Urine Color Straw Urine Turbidity Clear Urine pH 7.0 Ur Specific Ruby 1.009 Urine Protein <15 mg/dl Urine Glucose (UA) Neg Urine Ketones Neg Urine Blood Neg Urine Nitrite Neg Urine Bilirubin Neg Urine Urobilinogen < 2.0 Ur Leukocyte Esterase Neg Urine WBC (Auto) 1.0 Urine RBC (Auto) 1.0 U Epithel Cells (Auto) 2.0 Urine Mucus Few - EKG Data -: EKG Interpreted by Ia EKG shows normal: sinus rhythm, intervals, QRS complexes, ST-T waves Rate: normal - EKG Data Interpretation: no acute changes, LVH, other (Left anterior fascicular block) - Radiology Data Radiology results: report reviewed ( IMPRESSION: Chronic Interstitial Lung Dz), image reviewed IMPRESSION: 1. No sonographic evidence for DVT in either lower extremity. - Medical Decision Making It would appear that the patient has dependent lower extremity edema which is likely related to venous insufficiency, possible excessive sodium in the diet, possible effects of interstitial lung disease and pulmonary hypertension/cor pulmonale, possible diastolic dysfunction. Her proBNP however is essentially normal. This is not a CHF exacerbation. There was minimal protein in her urine last time. Her Doppler of her right leg was negative for DVT We will give the patient a dose of Lasix IV. We will check her urine again. We will do a bilateral venous Doppler. It would appear that the patient may benefit from home health care if she does not have yet. It would also appear that the family is not obtaining primary care very consistently but rather coming to the emergency department twice in 1 week. Critical care attestation.: If time is entered above; I have spent that time in minutes in the direct care of this critically ill patient, excluding procedure time. ED Disposition Clinical Impression: Lower extremity edema, Cor pulmonale (chronic), Venous insufficiency Chronic kidney disease Qualifiers: Chronic kidney disease stage: stage 2 (mild) Qualified Code(s): N18.2 - Chronic kidney disease, stage 2 (mild) Disposition: TO HOME OR SELFCARE Is pt being admited?: No Does the pt Need Aspirin: No Condition: Stable Instructions: Chronic Venous Insufficiency, Food Basics for Chronic Kidney Disease, Chronic Kidney Disease, Adult, [id number] Additional Instructions: Elevate legs. Limit salt in diet. Support stockings did something to discuss with primary care provider. I expect you would benefit from home health. Return to the emergency department any acute change or problem. Follow-up with your primary care provider soon as possible. Referrals: GURVINDER DIAZ MD [Primary Care Provider] - 3-5 Days KATELYN KNIGHT MD [Staff Physician] - 3-5 Days [facility] [Provider Group] - 3-5 Days
[2020-08-02] MEDS ORDERED: FUROSEMIDE 40 MG/4 ML INJ IV ONE (08:03)
[2020-08-02 09:03] LABS: Bilirubin,Urine NEG (Negative); Blood,Urine NEG (Negative); Color,Urine Straw (Yellow); Mucus,Urine FEW /HPF; Protein,Urine <15 mg/dL mg/dL (Negative); Urobilinogen,Urine < 2.0 mg/dL (<2.0)
--- NOTE | 2020-08-02 09:54 | Vascular Lab Report ---
DUPLEX DOPPLER LOWER EXTREMITY VEINS, BILATERAL INDICATION / CLINICAL INFORMATION: Bilateral lower extremity swelling. TECHNIQUE: Duplex doppler imaging was performed through the veins of both lower extremities using venous [place] and other maneuvers. COMPARISON: None available. FINDINGS: RIGHT COMMON FEMORAL VEIN: Negative. RIGHT FEMORAL VEIN: Negative. RIGHT POPLITEAL VEIN: Negative. RIGHT CALF VEINS: Negative. LEFT COMMON FEMORAL VEIN: Negative. LEFT FEMORAL VEIN: Negative. LEFT POPLITEAL VEIN: Negative. LEFT CALF VEINS: Negative. ADDITIONAL FINDINGS: None. IMPRESSION: 1. No sonographic evidence for DVT in either lower extremity. Signer Name: Hector Hussein MD Signed: 08/02/2020 9:49 AM Workstation Name: [id number]
[2020-08-02 11:25] VITALS: BP 159/80
== END 2020-08-02 11:00 | disposition home or self-care (01) ==
LOC: ED 00:34
DX: I13.0 Hypertensive heart and chronic kidney disease with heart failure and stage 1 through stage 4 chronic kidney disease, or unspecified chronic kidney disease (principal); I50.9 Heart failure, unspecified; N18.9 Chronic kidney disease, unspecified; I87.2 Venous insufficiency (chronic) (peripheral); R60.0 Localized edema; F03.90 Unspecified dementia, unspecified severity, without behavioral disturbance, psychotic disturbance, mood disturbance, and anxiety; Z98.890 Other specified postprocedural states; Z79.899 Other long term (current) drug therapy; Z88.8 Allergy status to other drugs, medicaments and biological substances
CPT/HCPCS: 36415; 71046; 80053; 81001; 83880; 85025; 93005; 93970; 96374; 99284; J1940

== ENCOUNTER 2020-10-11 01:13 | Emergency (ER) | payer MEDICARE ==
--- NOTE | 2020-10-11 01:47 | Emergency Department Report ---
ED CPR HPI - General Stated Complaint: CARDIAC ARREST Time Seen by Provider: 10/11/20 01:39 Source: police, EMS Mode of arrival: Stretcher Limitations: Altered Mental Status, Physical Limitation - History of Present Illness Initial Comments: Patient is an 80-year-old presents emergency room for cardiac arrest. Patient brought in by EMS. CPR was started by the police. Patient's initial findings are agonal breathing and no pulse. CPR continued with EMS. EMS gave patient epi and intubated patient with a Rai tube. Downtime is unknown. MD Complaint: found unresponsive -: unknown Place: home Bystander CPR Performed: Yes AED Applied by Bystander/Recapper: No Initial Findings in the Field: unresponsive, agonal, no pulse ROSC in the Field: No Associated Injuries: No - Related Data Home Medications Medication Instructions Recorded Confirmed Last Taken Clopidogrel 75 mg PO DAILY 12/06/18 12/06/18 12/05/18 Ferrous Sulfate [Ferrous Sulfate 324 mg PO DAILY 12/06/18 12/06/18 12/05/18 324 MG] Furosemide [Lasix TAB] 80 mg PO BID 12/06/18 12/06/18 12/05/18 Gabapentin 400 mg PO Q8HR 12/06/18 12/06/18 12/05/18 Linagliptin [Tradjenta] 5 mg PO QDAY 12/06/18 12/06/18 12/05/18 Memantine 10 mg PO QDAY 12/06/18 12/06/18 12/05/18 Nitroglycerin [Nitrostat] 0.4 mg SL PRN 12/06/18 12/06/18 12/05/18 Oxycodone HCl/Acetaminophen 1 each PO TID 12/06/18 12/06/18 12/05/18 [Percocet 10/325 mg] Potassium Chloride [K-Dur] 20 meq PO QDAY 12/06/18 12/06/18 12/05/18 Simvastatin 40 mg PO QHS 12/06/18 12/06/18 12/05/18 carvediloL [Coreg] 25 mg PO BID 12/06/18 12/06/18 12/05/18 lisinopriL [Zestril TAB] 20 mg PO QDAY 12/06/18 12/06/18 12/06/18 Previous Rx's Medication Instructions Recorded Last Taken Type Omeprazole 40 mg PO BID 37 Days #14 capsule. 12/07/18 Unknown Rx Allergies Allergy/AdvReac Type Severity Reaction Status Date / Time iodine Allergy Shortness Verified 07/27/20 12:04 of Breath ED Review of Systems ROS: Stated complaint: CARDIAC ARREST Other details as noted in HPI Comment: Unobtainable due to pts medical conditions ED Past Medical Hx - Past Medical History Previous Medical History?: Yes Hx Hypertension: Yes Hx Congestive Heart Failure: Yes Hx Renal Disease: Yes Hx Dementia: Yes Additional medical history: dementia/ UTIS/ BLOOD CLOTS - Surgical History Past Surgical History?: Yes Additional Surgical History: BACK/NECK - Family History Family history: no significant - Social History Smoking Status: Never Smoker Substance Use Type: None - Medications Home Medications: Home Medications Medication Instructions Recorded Confirmed Last Taken Type Clopidogrel 75 mg PO DAILY 12/06/18 12/06/18 12/05/18 History Ferrous Sulfate [Ferrous Sulfate 324 mg PO DAILY 12/06/18 12/06/18 12/05/18 History 324 MG] Furosemide [Lasix TAB] 80 mg PO BID 12/06/18 12/06/18 12/05/18 History Gabapentin 400 mg PO Q8HR 12/06/18 12/06/18 12/05/18 History Linagliptin [Tradjenta] 5 mg PO QDAY 12/06/18 12/06/18 12/05/18 History Memantine 10 mg PO QDAY 12/06/18 12/06/18 12/05/18 History Nitroglycerin [Nitrostat] 0.4 mg SL PRN 12/06/18 12/06/18 12/05/18 History Oxycodone HCl/Acetaminophen 1 each PO TID 12/06/18 12/06/18 12/05/18 History [Percocet 10/325 mg] Potassium Chloride [K-Dur] 20 meq PO QDAY 12/06/18 12/06/18 12/05/18 History Simvastatin 40 mg PO QHS 12/06/18 12/06/18 12/05/18 History carvediloL [Coreg] 25 mg PO BID 12/06/18 12/06/18 12/05/18 History lisinopriL [Zestril TAB] 20 mg PO QDAY 12/06/18 12/06/18 12/06/18 History Omeprazole 40 mg PO BID 37 Days #14 capsule. 12/07/18 Unknown Rx ED Physical Exam - General General appearance: other - Head Head exam: Present: atraumatic, normocephalic - Eye Eye exam: Present: other (Pupils fixed and dilated) - ENT ENT exam: Present: normal exam, other (Rai tube in place by EMS.) - Respiratory Respiratory exam: Present: decreased breath sounds, other (Rai tube in place by EMS and placement verified.) ED Course - Reevaluation(s) Reevaluation #1: Patient arrived via EMS. Patient is asystole. CPR continued. Patient given epi bicarb. Report received from EMS. 10/11/20 01:13 Patient patient had spontaneous return of circulation. Rai tube extubated. Patient was reintubated with a standard ET tube. See procedure note. Patient also had a right EJ started. 10/11/20 01:17 Reevaluation #2: Patient went into cardiac arrest. Patient given epi and calcium and CPR initiated. 10/11/20 01:28 Spontaneous return of circulation. Patient on the monitor. Blood pressure recheck. We will start on epi drip. 10/11/20 01:30 Reevaluation #3: Patient went into cardiac arrest. CPR started. Epi given. 10/11/20 01:32 Spontaneous return of circulation. 10/11/20 01:36 Reevaluation #4: Patient went into cardiac arrest. CPR initiated. Patient given epi. 10/11/20 01:41 Resuscitation efforts were terminated due to no signs of life. Ultrasound shows no cardiac movement. Patient has no respiratory effort. Patient is asystole on the monitor. Patient has no pulse. Family support given once the family is available. See code note. Code ran in accordance with ACLS guidelines. 10/11/20 01:45 - EJ/Peripheral Line Neck R Time Out Performed: Yes Indications: nurses unable to establis Skin Cleansed in Sterile Fashion: Yes Size: 18 Dressing Placed: Tegaderm, tape Patient Tolerated Procedure: well, no complications - Intubation Time Out Performed: Yes Sedative: none Laryngoscope: fiberoptic video scope Size: 4 Assist Device Used: fiberoptic device ET Tube Size: 7.5 Tube Secured Depth (cm): 22 Tube Secured Location: teeth Tube Placement Confirmation: visualized tube passing t, equal breath sounds bilat, no breath sounds over epi, confirmation by capnometr Patient Tolerated Procedure: well Intubation Complications: none ED Medical Decision Making - Medical Decision Making Patient is an 80-year-old emergency room with cardiac arrest. Patient found unresponsive by her family and the police started CPR. EMS then took over and brought the patient to the hospital. Report received from EMS. After assumed care, the patient had spontaneous return of circulation and the patient was extubated and then reintubated with a standard ET tube. See procedure note. Patient also had a right EJ placed. Patient went into cardiac arrest multiple times and finally the resuscitation efforts were terminated due to no signs of life. Code ran in accordance with ACLS guidelines. See code notes. Critical care time documented due to the multiple reassessments, prolonged time at the bedside. - Differential Diagnosis Cardiac arrest, PE, NM, Critical Care Time: Yes Critical care time in (mins) excluding proc time.: 35 Critical care attestation.: If time is entered above; I have spent that time in minutes in the direct care of this critically ill patient, excluding procedure time. Critical Care Time: 35 minutes ED Disposition Clinical Impression: Cardiac arrest Disposition: DC-20 Is pt being admited?: No Does the pt Need Aspirin: No Condition: Critical Time of Disposition: 02:46
[2020-10-11] MEDS ORDERED: EPINEPHrine 1 MG/10 ML SYRINGE ONE (06:27)
[2020-10-11] MEDS ORDERED: SODIUM BICARB 8.4% 50 MEQ/50 ML SYRINGE IV ONE (06:27)
[2020-10-11] MEDS ORDERED: CALCIUM CHLORIDE 1,000 MG/10 ML SYRINGE IV ONE (06:27)
[2020-10-11] MEDS ORDERED: ATROPINE 0.1% (1 MG/10 ML) CARDIAC SYRINGE ONE (06:27)
== END 2020-10-11 05:44 ==
LOC: ED 01:13
DX: I46.9 Cardiac arrest, cause unspecified (principal); I11.0 Hypertensive heart disease with heart failure; I50.9 Heart failure, unspecified; F03.90 Unspecified dementia, unspecified severity, without behavioral disturbance, psychotic disturbance, mood disturbance, and anxiety; Z98.890 Other specified postprocedural states; Z79.899 Other long term (current) drug therapy; Z88.8 Allergy status to other drugs, medicaments and biological substances
CPT/HCPCS: 31500; 36556; 92950; 99291; J0171; J0461